=== PATIENT | male | born 1965 | race Hispanic/Latino ===

== ENCOUNTER 2016-08-24 10:02 | Emergency (ER) | payer MEDICAID ==
[2016-08-24 10:02] VITALS: BMI 22.0
[2016-08-24 10:19] VITALS: BP 127/79; PULSE 100; RESP 19; TEMP 98.1; O2SAT 98
--- NOTE | 2016-08-24 10:32 | ED PDOC ---
Arrival/HPI - General Chief Complaint: Lower Extremity Problem/Injury Time Seen by Provider: 08/24/16 10:26 Historian: Patient - History of Present Illness Narrative History of Present Illness (Text): 08/24/16 10:32 50 year old male whose past medical history includes gout on Allopurinol presents to the emergency department with right foot pain. He states the pain is going to the rest of his foot. Denies fever. Denies trauma or injury. No other complaints. PMD: Dr. Hyman Symptom Onset: Gradual Symptom Course: Unchanged Modifying Factors (Text): None Associated Symptoms (Text): None Past Medical History - Provider Review Nursing Documentation Reviewed: Yes - Infectious Disease Hx of Infectious Diseases: None - Tetanus Immunization Tetanus Immunization: Unknown - Cardiac Hx Cardiac Disorders: No - Pulmonary Hx Respiratory Disorders: No - Neurological Hx Neurological Disorder: No - Renal Hx Renal Disorder: No - Endocrine/Metabolic Hx Endocrine Disorders: No - Hematological/Oncological Hx Blood Disorders: Yes Hx Anemia: Yes - Integumentary Hx Dermatological Disorder: No - Musculoskeletal/Rheumatological Hx Musculoskeletal Disorders: Yes Hx Gout: Yes - Gastrointestinal Hx Gastrointestinal Disorders: Yes Hx Gall Bladder Disease: Yes - Genitourinary/Gynecological Hx Genitourinary Disorders: No - Psychiatric Hx Psychophysiologic Disorder: Yes Hx Anxiety: Yes Hx Bipolar Disorder: Yes Hx Depression: No Hx Emotional Abuse: No Hx Physical Abuse: No Hx Substance Use: No - Surgical History Hx Orthopedic Surgery: Yes (rt foot) Other/Comment: deviated septum repair. - Anesthesia Hx Anesthesia: Yes Hx Anesthesia Reactions: No - Suicidal Assessment Feels Threatened In Home Enviroment: No Family/Social History - Physician Review Nursing Documentation Reviewed: Yes Family/Social History: Unknown Family HX Smoking Status: Former Smoker Hx Alcohol Use: No Hx Substance Use: No Hx Substance Use Treatment: Yes Allergies/Home Meds Allergies/Adverse Reactions: Allergies No Known Allergies Allergy (Verified 08/24/16 10:14) Home Medications: Home Meds Medication Instructions Recorded Confirmed Allopurinol [Zyloprim] 1 tab PO DAILY 08/24/16 08/24/16 Review of Systems - Review of Systems Constitutional: absent: Fevers Musculoskeletal: Other (Right foot pain) Physical Exam Vital Signs Reviewed: Yes Vital Signs Temp Pulse Resp BP Pulse Ox 08/24/16 10:18 98.1 F 100 H 19 127/79 98 Temperature: Afebrile Blood Pressure: Normal Pulse: Regular Respiratory Rate: Normal Appearance: Positive for: Well-Appearing, Non-Toxic Pain Distress: Mild Mental Status: Positive for: Alert and Oriented X 3 - Systems Exam Head: Present: Atraumatic, Normocephalic Conjunctiva: Present: Normal Mouth: Present: Moist Mucous Membranes Lower Extremity: Present: NORMAL PULSES, Swelling, Capillary Refill < 2 s, Other (Mild swelling to right ankle and big toe. Mild pinkness to the foot. Not red or warm. ) Neurological: Present: GCS=15, CN II-XII Intact, Speech Normal Psychiatric: Present: Alert, Oriented x 3, Normal Insight, Normal Concentration Medical Decision Making ED Course and Treatment: Impression: 50 year old male whose past medical history includes gout on Allopurinol presents to the emergency department with right foot pain. Differential Diagnosis included but are not limited to: Gout Plan: -- Toradol, Allopurinol -- Reassess and disposition Progress Notes: - Medication Orders Current Medication Orders: Discontinued Medications Ketorolac Tromethamine (Toradol) 60 mg IM STAT STA Stop: 08/24/16 10:32 Last Admin: 08/24/16 11:19 Dose: 60 mg - Scribe Statement The provider has reviewed the documentation as recorded by the Johana Lombardo Provider Scribe Attestation: All medical record entries made by the Johana were at my direction and personally dictated by me. I have reviewed the chart and agree that the record accurately reflects my personal performance of the history, physical exam, medical decision making, and the department course for this patient. I have also personally directed, reviewed, and agree with the discharge instructions and disposition. Disposition/Present on Arrival - Present on Arrival Any Indicators Present on Arrival: No History of DVT/PE: No History of Uncontrolled Diabetes: No Urinary Catheter: No History of Decub. Ulcer: No History Surgical Site Infection Following: None - Disposition Have Diagnosis and Disposition been Completed?: Yes Diagnosis: Gout Disposition: HOME/ ROUTINE Disposition Time: 10:54 Patient Plan: Discharge Condition: GOOD Discharge Instructions (ExitCare): Gout (ED) Additional Instructions: Corrine, thank you for letting us take care of you today. Your provider was Dr. Conroy. You were treated for Gout. The emergency medical care you received today was directed at your acute symptoms. If you were prescribed any medication , please fill it and take as directed. It may take several days for your symptoms to resolve. Return to the Emergency Department if your symptoms worsen , do not improve, or if you have any other problems. Please contact your doctor or call one of the physicians/clinics you have been referred to that are listed on the Patient Visit Information form that is included in your discharge packet. Bring any paperwork you were given at discharge with you along with any medications you are taking to your follow up visit. Our treatment cannot replace ongoing medical care by a primary care provider (PCP) outside of the emergency department. Thank you for allowing the [facility] team to be part of your care today. If you had an X-Ray or CT scan: A Radiologist will review the ED reading if any change in treatment is needed we will contact you. If you had a blood, urine, or wound culture: It will take several days for the results, if any change in treatment is needed we will contact you. If you had an STI test: It will take 48 hours for the results. Please call after 1 week if you have not heard back. Prescriptions: Allopurinol [Zyloprim] 100 mg PO DAILY #30 tab Indomethacin [Indocin suppository] 50 mg [place] TID PRN #30 sup PRN Reason: Pain, Mild (1-3) Referrals: Rory Hyman MD [Primary Care Provider] - Follow up with primary Forms: [employer] (Belarusian), WORK NOTE
== END 2016-08-24 11:27 | disposition home or self-care (01) ==
LOC: ED 10:02
DX: M10.9 Gout, unspecified (principal)
CPT/HCPCS: 96372; 99284; J1885

== ENCOUNTER 2018-07-15 10:29 | Inpatient (IN) | payer MEDICAID ==
[2018-07-15] MEDS ORDERED: Midazolam 2 MG/2 ML VIAL IVP STA ×3 (10:50→11:05)
[2018-07-15] MEDS ORDERED: Sodium Chloride 0.9% 500 ML IV STA (10:56)
--- NOTE | 2018-07-15 11:02 | ED PDOC ---
Arrival/HPI - General Chief Complaint: Psychiatric Evaluation Time Seen by Provider: 07/15/18 10:39 Historian: EMS - History of Present Illness Narrative History of Present Illness (Text): 07/15/18 10:58 A 52 year old male, whose past medical history includes bipolar disorder, is brought into the emergency department via EMS after patient's called EMS for further evaluation after taking vodka and Klonopin. Patient is agitated in the emergency department. Patient HPI/ROS limited due to patient's condition. Time/Duration: Prior to Arrival Symptom Onset: Sudden Symptom Course: Unchanged Activities at Onset: Rest, Light Context: Home Past Medical History - Provider Review Nursing Documentation Reviewed: Yes - Infectious Disease Hx of Infectious Diseases: None - Tetanus Immunization Tetanus Immunization: Unknown - Cardiac Hx Cardiac Disorders: No - Pulmonary Hx Respiratory Disorders: No - Neurological Hx Neurological Disorder: No - Renal Hx Renal Disorder: No - Endocrine/Metabolic Hx Endocrine Disorders: No - Hematological/Oncological Hx Blood Disorders: Yes Hx Anemia: Yes - Integumentary Hx Dermatological Disorder: No - Musculoskeletal/Rheumatological Hx Musculoskeletal Disorders: Yes Hx Gout: Yes - Gastrointestinal Hx Gastrointestinal Disorders: Yes Hx Gall Bladder Disease: Yes - Genitourinary/Gynecological Hx Genitourinary Disorders: No - Psychiatric Hx Psychophysiologic Disorder: Yes Hx Anxiety: Yes Hx Bipolar Disorder: Yes Hx Depression: No Hx Emotional Abuse: No Hx Physical Abuse: No Hx Substance Use: No - Surgical History Hx Orthopedic Surgery: Yes (rt foot) Other/Comment: deviated septum repair. - Anesthesia Hx Anesthesia: Yes Hx Anesthesia Reactions: No Hx Malignant Hyperthermia: No - Suicidal Assessment Feels Threatened In Home Enviroment: No Family/Social History - Physician Review Nursing Documentation Reviewed: Yes Family/Social History: No Known Family HX Smoking Status: Former Smoker Hx Alcohol Use: No Hx Substance Use: No Hx Substance Use Treatment: Yes Allergies/Home Meds Allergies/Adverse Reactions: Allergies No Known Allergies Allergy (Verified 08/24/16 10:14) Home Medications: Home Meds Medication Instructions Recorded Confirmed Allopurinol [Zyloprim] 300 mg PO 07/15/18 Clonazepam [Klonopin] 0.5 mg PO 07/15/18 Divalproex Er 500 mg PO 07/15/18 Levocetirizine Dihydrochloride 5 mg PO 07/15/18 [Xyzal] Olanzapine [Zyprexa] 20 mg PO 07/15/18 Omeprazole 40 mg PO 07/15/18 Quetiapine Fumarate [Quetiapine 150 mg PO 07/15/18 Fumarate ER] Review of Systems - Physician Review All systems were reviewed & negative as marked: Yes - Review of Systems Systems not reviewed;Unavailable: Uncooperative Physical Exam - Physical Exam Physical Exam Limitations: Uncooperative Vital Signs Reviewed: Yes Vital Signs Temp Pulse Resp BP Pulse Ox 07/15/18 10:34 98.9 F 105 H 19 129/79 98 Temperature: Afebrile Blood Pressure: Normal Pulse: Tachycardic Respiratory Rate: Normal Appearance: Positive for: Well-Appearing, Non-Toxic, Comfortable Pain Distress: None Mental Status: Positive for: Alert and Oriented X 3 Medical Decision Making ED Course and Treatment: 07/15/18 11:02 Impression: A 52 year old male is brought into the emergency department for further evaluation after taking Klonopin and vodka. Differential Diagnosis included but are not limited to: Plan: -- EKG -- Chest X-ray -- Labs -- Urinalysis -- Haldol, Versed, IV Fluids -- Reassess and disposition Prior Visits: Notes and results from previous visits were reviewed. Progress Notes: 07/15/18 10:55: Patient combative in the emergency department. Soft restraints ordered and placed for about 10 minutes. Versed and Haldol given. 07/15/18 11:25: EKG read and interpreted by me shows sinus tachycardia at 113 BPM. Normal axis. No ST- T wave changes. 07/15/18 13:05: Dr. Campbell (Records Analyst) in emergency department evaluating patient. Precedex and Lactated Ringers ordered as per Dr. Campbell's requst. 07/15/18 14:35: Dr. Mcconnell (Hospitalist) who accepts patient to his service. - Lab Interpretations I have reviewed the lab results: Yes - EKG Interpretation Interpreted by ED Physician: Yes Type: 12 lead EKG - Medication Orders Current Medication Orders: Discontinued Medications Haloperidol Lactate (Haldol) 5 mg IM STAT STA; Protocol Stop: 07/15/18 10:51 Midazolam HCl (Versed Inj) 2 mg IVP STAT STA Stop: 07/15/18 10:51 - Scribe Statement The provider has reviewed the documentation as recorded by the Scribe Monika Avendanoz Provider Scribe Attestation: All medical record entries made by the Scribe were at my direction and personally dictated by me. I have reviewed the chart and agree that the record accurately reflects my personal performance of the history, physical exam, medical decision making, and the department course for this patient. I have also personally directed, reviewed, and agree with the discharge instructions and disposition. Disposition/Present on Arrival - Present on Arrival Any Indicators Present on Arrival: No History of DVT/PE: No History of Uncontrolled Diabetes: No Urinary Catheter: No History of Decub. Ulcer: No History Surgical Site Infection Following: None - Disposition Have Diagnosis and Disposition been Completed?: Yes Diagnosis: Overdose, Agitation Disposition: HOSPITALIZED Disposition Time: 14:32 Patient Plan: ICU Patient Problems: Current Active Problems Problem Status Onset Agitation Acute Overdose Acute Condition: CRITICAL
[2018-07-15 11:11] LABS: BASO # 0.03 K/mm3 (0.0-2.0); BASO % 0.7 % (0.0-3.0); HEMOGLOBIN 12.6 g/dL (14.0-18.0); LYMPH # 1.2 (1.2-3.4); LYMPH % 27.6 % (22.0-35.0); MEAN CELL VOLUME 100.8 fl (80.0-105.0); MEAN CORPUSCULAR HEMOGLOBIN 33.4 pg (25.0-35.0); MEAN CORPUSCULAR HGB CONC 33.2 g/dl (31.0-37.0); MEAN PLATELET VOLUME 8.6 fl (7.0-11.0); MONO # 0.7 (0.1-0.6); MONO % 16.9 % (1.0-6.0); RBC 3.77 10^6/uL (3.5-6.1); RED CELL DISTRIBUTION WIDTH 14.4 % (11.5-14.5); WHITE BLOOD COUNT 4.4 10^3/uL (4.5-11.0)
[2018-07-15 11:36] LABS: ACETAMINOPHEN < 10.0 ug/ml (10.0-20.0); SALICYLATE < 1 mg/dL (2.0-20.0)
[2018-07-15 11:38] LABS: ALB/GLOB RATIO 1.6 (1.1-1.8); ALBUMIN 4.7 g/dL (3.0-4.8); ALT/SGPT 100 U/L (7-56); AST/SGOT 47 U/L (17-59); BLOOD UREA NITROGEN 6 mg/dL (7-21); CALCIUM 10.1 mg/dL (8.4-10.5); GFR NON-AFRICAN AMERICAN > 60
[2018-07-15] MEDS ORDERED: Sodium Chloride 0.9% 1,000 ML IV STA ×3 (12:07→13:41)
--- NOTE | 2018-07-15 13:23 | CP.PCM.CON ---
History of Present Illness - History of Present Illness History of Present Illness: MICU CONSULT NOTE HPI Patient is 52yo male with PMhx of Bipolar disorder, EtOH abuse, presented from girlfriends home after "accidentally taking Klonopin and alcohol". Unknown amounts of each substance. Pts currently agitated, unable to answer questions, has been given Ativan IV several times. Daughter at beside cannot provide any fu rther history. PMHx etOh abuse, Bipolar disorder PSHx unknown Meds Klonopin, Seroque, Olanzapine Fhx NC Allergies NKDA ROS cannot obtain, agitated Review of Systems - Review of Systems Review of Systems: cannot obtain Past Patient History - Infectious Disease Hx of Infectious Diseases: None - Tetanus Immunizations Tetanus Immunization: Unknown - Past Social History Smoking Status: Former Smoker - CARDIAC Hx Cardiac Disorders: No - PULMONARY Hx Respiratory Disorders: No - NEUROLOGICAL Hx Neurological Disorder: No - RENAL Hx Chronic Kidney Disease: No - ENDOCRINE/METABOLIC Hx Endocrine Disorders: No - HEMATOLOGICAL/ONCOLOGICAL Hx Blood Disorders: Yes Hx Anemia: Yes - INTEGUMENTARY Hx Dermatological Problems: No - MUSCULOSKELETAL/RHEUMATOLOGICAL Hx Musculoskeletal Disorders: Yes Hx Gout: Yes - GASTROINTESTINAL Hx Gastrointestinal Disorders: Yes Hx Gall Bladder Disease: Yes - GENITOURINARY/GYNECOLOGICAL Hx Genitourinary Disorders: No - PSYCHIATRIC Hx Psychophysiologic Disorder: Yes Hx Anxiety: Yes Hx Bipolar Disorder: Yes Hx Depression: No Hx Emotional Abuse: No Hx Physical Abuse: No Hx Substance Use: No - SURGICAL HISTORY Hx Orthopedic Surgery: Yes (rt foot) Other/Comment: deviated septum repair. - ANESTHESIA Hx Anesthesia: Yes Hx Anesthesia Reactions: No Hx Malignant Hyperthermia: No Meds Allergies/Adverse Reactions: Allergies Allergy/AdvReac Type Severity Reaction Status Date / Time No Known Allergies Allergy Verified 08/24/16 10:14 - Medications Medications: Current Medications Dexmedetomidine HCl (Precedex 400mcg/100ml) 400 mcg in 100 mls @ 8.845 mls/hr IV .[id number] PRN; Protocol PRN Reason: Agitation Lactated Ringer's 1,000 ml/ IV (SUPPLIES) 1,000 mls @ 4,245.6 mls/hr IV ONCE ONE Stop: 07/15/18 13:21 Physical Exam - Constitutional Appears: Toxic, Older Than Stated Age, Combative, Agitated, Confused - Head Exam Head Exam: ATRAUMATIC - Eye Exam Eye Exam: Normal appearance - ENT Exam ENT Exam: Mucous Membranes Dry - Respiratory Exam Respiratory Exam: Clear to Auscultation Bilateral, NORMAL BREATHING PATTERN - Cardiovascular Exam Cardiovascular Exam: REGULAR RHYTHM, +S1, +S2 - GI/Abdominal Exam GI & Abdominal Exam: Normal Bowel Sounds, Soft - Neurological Exam Neurological exam: Altered - Psychiatric Exam Psychiatric exam: Agitated, Anxious - Skin Skin Exam: Normal Color, Warm Results - Vital Signs Recent Vital Signs: Last Vital Signs Temp 98.9 F 07/15/18 10:34 Pulse 135 H 07/15/18 10:39 Resp 22 07/15/18 10:39 BP 129/79 07/15/18 10:34 Pulse Ox 99 07/15/18 10:39 - Labs Result Diagrams: 07/15/18 10:54 07/15/18 10:54 Labs: Laboratory Results - last 24 hr 07/15/18 07/15/18 07/15/18 10:54 10:54 10:54 WBC 4.4 L RBC 3.77 Hgb 12.6 L Hct 38.0 L MCV 100.8 MCH 33.4 MCHC 33.2 RDW 14.4 Plt Count 245 MPV 8.6 Neut % (Auto) 54.8 Lymph % (Auto) 27.6 Sargent % (Auto) 16.9 H Eos % (Auto) 0.0 L Baso % (Auto) 0.7 Lymph # (Auto) 1.2 Sargent # (Auto) 0.7 H Eos # (Auto) 0.0 Baso # (Auto) 0.03 Absolute Neuts (auto) 2.41 Sodium Potassium Chloride Carbon Dioxide Anion Gap BUN Creatinine Est GFR ( Amer) Est GFR (Non-Af Amer) Random Glucose Calcium Magnesium Total Bilirubin AST ALT Alkaline Phosphatase Total Protein Albumin Globulin Albumin/Globulin Ratio Salicylates < 1 L Acetaminophen < 10.0 L Alcohol, Quantitative 60 H 07/15/18 10:54 WBC RBC Hgb Hct MCV MCH MCHC RDW Plt Count MPV Neut % (Auto) Lymph % (Auto) Sargent % (Auto) Eos % (Auto) Baso % (Auto) Lymph # (Auto) Sargent # (Auto) Eos # (Auto) Baso # (Auto) Absolute Neuts (auto) Sodium 147 Potassium 4.3 Chloride 111 H Carbon Dioxide 14 L Anion Gap 26 H BUN 6 L Creatinine 1.0 Est GFR ( Amer) > 60 Est GFR (Non-Af Amer) > 60 Random Glucose 129 H Calcium 10.1 Magnesium 2.0 Total Bilirubin 0.7 AST 47 ALT 100 H Alkaline Phosphatase 81 Total Protein 7.7 Albumin 4.7 Globulin 3.0 Albumin/Globulin Ratio 1.6 Salicylates Acetaminophen Alcohol, Quantitative Assessment & Plan - Assessment and Plan (Free Text) Assessment: 52yo male a/w alcohol withdrawal, ingestion of unknown substance Delirium Tremens AMS Overdose BZD abuse Bipolar disorder Non GAP acidosis - currently afebrile, HD stable, agitated, combative, not following commands, screaming - labs, imaging, chart reviewed - thus far has received 1L NS, BZD Recommend: - supp o2 as needed, duonebs PRN - NPO - panculture, UCx, BCx, procal - IVF, NS with thiamine, folic, MVT - CT head without contrast - place Francis, I/Os, UA, Ulytes, Obtain Utox - start Precedex drip - contact poison contract - VBG with lactate - check serum OSM - GI ppx - DVT ppx - Monitor in MICU Critical care time 30 minutes
[2018-07-15] MEDS ORDERED: Albuterol-Ipratrop 3 mg / 0.5 (3 ml) UD IH PRN (13:30)
[2018-07-15] MEDS: Dexmedetomidine 400mcg/100mL 400 MCG/100 ML BOTTLE IV PRN ×2 (13:33→20:56)
[2018-07-15 14:34] LABS: VENOUS BLOOD GAS BASE EXCESS -3.9 mmol/L (0.0-2.0); VENOUS BLOOD GAS PO2 104 mm/Hg (30-55); VENOUS BLOOD PH 7.49 (7.32-7.43)
--- NOTE | 2018-07-15 14:51 | CP.PCM.HP ---
<Vineet Craig - Last Filed: 07/15/18 18:35> History of Present Illness - History of Present Illness History of Present Illness: Hospitalist Service H&P Vineet Craig DO, IM PGY-3 CC: Klonopin OD with alcohol This is a 52 yo M with PMH of Bipolar disorder, gout, and hx of alcohol abuse who was brought in by ambulance after overdosing on Klonopin while drinking excessively (vodka). HPI/ROS/PE limited due to patient unresponsiveness (sedated on precedex at time of exam); patient required sedation due to agitation on presentation, ROS unobtainable then as well, so information limited to prior charting, and minimal collateral info provided by family at bedside. As per ED, patient agitated on arrival, possibly suffering from DTs, but remained agitated and uncooperative despite several doses of Ativan, necessitating the precedex. At time of my exam, patient is minimally arousable to verbal/physical stimuli and immediately returns to somnolence. No appreciable tremors at time of exam. Is pending admission to ICU on precedex drip for alcohol/benzo withdrawal and close monitoring. PMH: as above PSH: orthopedic procedure R foot, deviated septum repair Fam Hx: unobtainable in current state Soc Hx: former smoker as per charting, active alcohol user (quantity unknown), no known illicit use PMD: Dr. Hyman Present on Admission - Present on Admission Any Indicators Present on Admission: No History of DVT/PE: No History of Uncontrolled Diabetes: No Review of Systems - Review of Systems Systems not reviewed;Unavailable: Altered Mental Status (initially agitated, now sedated) Past Patient History - Infectious Disease Hx of Infectious Diseases: None - Tetanus Immunizations Tetanus Immunization: Unknown - Past Social History Smoking Status: Former Smoker - CARDIAC Hx Cardiac Disorders: No - PULMONARY Hx Respiratory Disorders: No - NEUROLOGICAL Hx Neurological Disorder: No - RENAL Hx Chronic Kidney Disease: No - ENDOCRINE/METABOLIC Hx Endocrine Disorders: No - HEMATOLOGICAL/ONCOLOGICAL Hx Blood Disorders: Yes Hx Anemia: Yes - INTEGUMENTARY Hx Dermatological Problems: No - MUSCULOSKELETAL/RHEUMATOLOGICAL Hx Musculoskeletal Disorders: Yes Hx Gout: Yes - GASTROINTESTINAL Hx Gastrointestinal Disorders: Yes Hx Gall Bladder Disease: Yes - GENITOURINARY/GYNECOLOGICAL Hx Genitourinary Disorders: No - PSYCHIATRIC Hx Psychophysiologic Disorder: Yes Hx Anxiety: Yes Hx Bipolar Disorder: Yes Hx Depression: No Hx Emotional Abuse: No Hx Physical Abuse: No Hx Substance Use: No - SURGICAL HISTORY Hx Orthopedic Surgery: Yes (rt foot) Other/Comment: deviated septum repair. - ANESTHESIA Hx Anesthesia: Yes Hx Anesthesia Reactions: No Hx Malignant Hyperthermia: No Meds Allergies/Adverse Reactions: Allergies Allergy/AdvReac Type Severity Reaction Status Date / Time No Known Allergies Allergy Verified 08/24/16 10:14 Physical Exam - Constitutional Appears: Non-toxic, Chronically Ill, Other (sedated due to agitation/possible DTs) Additional comments: exam limited as sedated, not responsive, so not following commands - Head Exam Head Exam: ATRAUMATIC, NORMAL INSPECTION, NORMOCEPHALIC - Eye Exam Additional comments: keeping eyes closed, flutters open for few seconds with stimulation then closes again, resists passive eye opening, no mary beth icterus appreciated, unable to assess EOM - ENT Exam ENT Exam: Mucous Membranes Moist - Neck Exam Neck exam: Negative for: Lymphadenopathy, Thyromegaly - Respiratory Exam Respiratory Exam: Clear to Auscultation Bilateral, NORMAL BREATHING PATTERN. absent: Rales, Rhonchi, Wheezes Additional comments: sedated, not following commands, not taking deep breaths for auscultory exam - Cardiovascular Exam Cardiovascular Exam: REGULAR RHYTHM, +S1, +S2. absent: Bradycardia, Irregular Rhythm, JVD, +S4 Additional comments: Initially tachy on arrival but now 90's consistently on bedside monitor, rhythm regular throughout - GI/Abdominal Exam GI & Abdominal Exam: Normal Bowel Sounds, Soft. absent: Diminished Bowel Sounds, Distended, Firm, Hyperactive Bowel Sounds, Hypoactive Bowel Sounds, Rigid, Tenderness - Extremities Exam Extremities exam: Positive for: normal capillary refill, normal inspection, pedal pulses present. Negative for: joint swelling, pedal edema - Neurological Exam Additional comments: sedated on precedex, minimally responsive to physical/verbal stimuli but immediately returns to somnolence, not following any commands, minimal spontaneous movements appreciated (none appear purposeful). - Psychiatric Exam Additional comments: sedated, unable to assess - Skin Skin Exam: Dry, Intact, Normal Color, Warm Results - Vital Signs Recent Vital Signs: Last Vital Signs Temp 98.9 F 07/15/18 10:34 Pulse 147 H 07/15/18 14:23 Resp 22 07/15/18 14:23 BP 141/81 07/15/18 14:23 Pulse Ox 100 07/15/18 14:23 - Labs Result Diagrams: 07/15/18 10:54 07/15/18 10:54 Labs: Laboratory Results - last 24 hr 07/15/18 07/15/18 07/15/18 10:54 10:54 10:54 WBC 4.4 L RBC 3.77 Hgb 12.6 L Hct 38.0 L MCV 100.8 MCH 33.4 MCHC 33.2 RDW 14.4 Plt Count 245 MPV 8.6 Neut % (Auto) 54.8 Lymph % (Auto) 27.6 [place] % (Auto) 16.9 H Eos % (Auto) 0.0 L Baso % (Auto) 0.7 Lymph # (Auto) 1.2 [place] # (Auto) 0.7 H Eos # (Auto) 0.0 Baso # (Auto) 0.03 Absolute Neuts (auto) 2.41 pO2 VBG pH VBG pCO2 VBG HCO3 VBG Total CO2 VBG O2 Sat (Calc) VBG Base Excess VBG Potassium Glucose Lactate FiO2 Crit Value Called To Crit Value Called By Blood Gas Notified Time Sodium Potassium Chloride Carbon Dioxide Anion Gap BUN Creatinine Est GFR ( Amer) Est GFR (Non-Af Amer) Random Glucose Serum Osmolality Calcium Magnesium Total Bilirubin AST ALT Alkaline Phosphatase Total Protein Albumin Globulin Albumin/Globulin Ratio Venous Blood Potassium Salicylates < 1 L Acetaminophen < 10.0 L Alcohol, Quantitative 60 H 07/15/18 07/15/18 07/15/18 10:54 12:00 14:20 WBC RBC Hgb Hct MCV MCH MCHC RDW Plt Count MPV Neut % (Auto) Lymph % (Auto) [place] % (Auto) Eos % (Auto) Baso % (Auto) Lymph # (Auto) [place] # (Auto) Eos # (Auto) Baso # (Auto) Absolute Neuts (auto) pO2 104 H VBG pH 7.49 H VBG pCO2 23.0 L VBG HCO3 17.5 L VBG Total CO2 18.2 L VBG O2 Sat (Calc) 98.5 H VBG Base Excess -3.9 L VBG Potassium 3.7 Glucose 101 Lactate 5.8 H* FiO2 21.0 Crit Value Called To Joelle clark Crit Value Called By Rst Blood Gas Notified Time 1430 Sodium 147 144.0 Potassium 4.3 Chloride 111 H 116.0 H Carbon Dioxide 14 L Anion Gap 26 H BUN 6 L Creatinine 1.0 Est GFR ( Amer) > 60 Est GFR (Non-Af Amer) > 60 Random Glucose 129 H Serum Osmolality 313 H Calcium 10.1 Magnesium 2.0 Total Bilirubin 0.7 AST 47 ALT 100 H Alkaline Phosphatase 81 Total Protein 7.7 Albumin 4.7 Globulin 3.0 Albumin/Globulin Ratio 1.6 Venous Blood Potassium 3.7 Salicylates Acetaminophen Alcohol, Quantitative Assessment & Plan - Assessment and Plan (Free Text) Assessment: This is a 52 yo M with PMH of Bipolar disorder, gout, and hx of alcohol abuse who was brought in by ambulance after overdosing on Klonopin while drinking excessively (vodka). He is being admitted for alcohol/benzo withdrawal, possible DTs. Due to requiring sedation with precedex, patient was admitted to the MICU. Plan: 1) Agitation/AMS - likely 2/2 Klonopin + Alcohol OD 2) Klonopin + Alcohol OD - pending withdrawal 3) Possible DTs 4) Bipolar 5) Potential urinary obstruction/rentention 6) Metabolic anion-gap acidosis -Sedated on precedex drip due to no improvement after multiple ativan doses -Urine drug screen ordered, but ED staff unable to access bladder with sanchez, urology consulted for access Once sanchez placed, strict I's and O's, UDS, urine lytes, -IVF, multivitamin, folic acid, thiamine for alcohol abuse -VBG lactate 5.8; metabolic gapped acidosis likely combination of alcohol +/- lactic acidosis -Urine and blood cultures pending, procal pending -alcohol level 60, salicylates and tylenol levels negative -elevated ALT to 100, nml AST and Alk phos, not consistent with alcohol tox -wean from sedation as tolerated, defer to ICU for this decision -Poison control consulted, appreciate their recs Patient seen, reviewed, and discussed with attending, Dr. Mcconnell <Mali Mcconnell - Last Filed: 07/16/18 15:37> Results - Vital Signs Recent Vital Signs: Last Vital Signs Temp 98.6 F 07/16/18 12:00 Pulse 77 07/16/18 12:00 Resp 13 07/16/18 10:00 BP 138/81 07/16/18 10:00 Pulse Ox 95 07/16/18 10:00 - Labs Result Diagrams: 07/16/18 05:00 07/16/18 05:00 Labs: Laboratory Results - last 24 hr 07/15/18 07/15/18 07/16/18 12:00 19:58 05:00 WBC 5.5 D RBC 3.98 Hgb 13.2 L Hct 40.7 L MCV 102.3 MCH 33.2 MCHC 32.4 RDW 14.3 Plt Count 229 MPV 8.8 Neut % (Auto) 66.0 Lymph % (Auto) 20.6 L [place] % (Auto) 13.0 H Eos % (Auto) 0.0 L Baso % (Auto) 0.4 Lymph # (Auto) 1.1 L [place] # (Auto) 0.7 H Eos # (Auto) 0.0 Baso # (Auto) 0.02 Absolute Neuts (auto) 3.65 pO2 193 H VBG pH 7.45 H VBG pCO2 28.0 L VBG HCO3 19.5 L VBG Total CO2 20.4 L VBG O2 Sat (Calc) 99.3 H VBG Base Excess -3.2 L VBG Potassium 3.5 L Sodium 144.0 Chloride 116.0 H Glucose 116 H Lactate 1.9 FiO2 21.0 Crit Value Called To Brenda salinas Crit Value Called By Dariel Blood Gas Notified Time 2025 Potassium Carbon Dioxide Anion Gap BUN Creatinine Est GFR ( Amer) Est GFR (Non-Af Amer) Random Glucose Calcium Phosphorus Magnesium Total Bilirubin AST ALT Alkaline Phosphatase Total Protein Albumin Globulin Albumin/Globulin Ratio Procalcitonin < 0.05 L Venous Blood Potassium 3.5 L Urine Opiates Screen Urine Methadone Screen Ur Barbiturates Screen Ur Phencyclidine Scrn Ur Amphetamines Screen U Benzodiazepines Scrn U Oth Cocaine Metabols U Cannabinoids Screen 07/16/18 07/16/18 05:00 08:40 WBC RBC Hgb Hct MCV MCH MCHC RDW Plt Count MPV Neut % (Auto) Lymph % (Auto) [place] % (Auto) Eos % (Auto) Baso % (Auto) Lymph # (Auto) [place] # (Auto) Eos # (Auto) Baso # (Auto) Absolute Neuts (auto) pO2 VBG pH VBG pCO2 VBG HCO3 VBG Total CO2 VBG O2 Sat (Calc) VBG Base Excess VBG Potassium Sodium 148 Chloride 116 H Glucose Lactate FiO2 Crit Value Called To Crit Value Called By Blood Gas Notified Time Potassium 4.0 Carbon Dioxide 22 Anion Gap 14 BUN 9 Creatinine 0.9 Est GFR ( Amer) > 60 Est GFR (Non-Af Amer) > 60 Random Glucose 98 Calcium 10.2 Phosphorus 4.3 Magnesium 2.3 H Total Bilirubin 1.2 AST 52 ALT 81 H Alkaline Phosphatase 88 Total Protein 7.3 Albumin 4.3 Globulin 3.0 Albumin/Globulin Ratio 1.5 Procalcitonin Venous Blood Potassium Urine Opiates Screen Negative Urine Methadone Screen Negative Ur Barbiturates Screen Negative Ur Phencyclidine Scrn Negative Ur Amphetamines Screen Negative U Benzodiazepines Scrn Positive H U Oth Cocaine Metabols Negative U Cannabinoids Screen Negative Attending/Attestation - Attestation I have personally seen and examined this patient.: Yes I have fully participated in the care of the patient.: Yes I have reviewed all pertinent clinical information: Yes Notes (Text): 07/16/18 15:33 Patient was seen and examined with phlebotomist medical lab assistant. . 52 yo M with PMH of Bipolar disorder, gout, and hx of alcohol abuse who was brought in by ambulance after overdosing on Klonopin while drinking excessive vodka.Patient was agitated in ER and was started on Precedex drip.There is no focal deficit.Patient is still confused , able to answer yes or no to questions only.Sister is at bed side.At this we will continue Precedex drip, once agitation will be controlled, will get CT head. We will monitor Neuro check. There is no sign of infection at this time. Patient is going to be admitted to ICU. Management plan was discussed in detail with patient sister who is at bed side. Education was provided.
[2018-07-15] MEDS ORDERED: Multivitamin (MVI) 10 ML, Thiamine 100 MG, Folic Acid 1 MG in Sodium Chloride 0.9% 1,00... IV ONE (15:00)
--- NOTE | 2018-07-15 16:06 | RAD ---
Date of service: 07/15/2018 HISTORY: r/o infiltrate COMPARISON: 11/24/2012 TECHNIQUE: 1 view obtained. FINDINGS: LUNGS: No active pulmonary disease. PLEURA: No significant pleural effusion identified, no pneumothorax apparent. CARDIOVASCULAR: No aortic atherosclerotic calcification present. Mild cardiomegaly no pulmonary vascular congestion. OSSEOUS STRUCTURES: No significant abnormalities. VISUALIZED UPPER ABDOMEN: Normal. OTHER FINDINGS: None. IMPRESSION: No active disease.
--- NOTE | 2018-07-15 19:45 | CARD ---
APPROVED REPORT Date of service: 07/15/2018 EKG Measurement Heart [id number] <Conclusion> Sinus tachycardia Otherwise normal ECG
[2018-07-15 20:27] LABS: VENOUS BLOOD GAS BASE EXCESS -3.2 mmol/L (0.0-2.0); VENOUS BLOOD GAS PO2 193 mm/Hg (30-55); VENOUS BLOOD PH 7.45 (7.32-7.43)
[2018-07-15 22:28] VITALS: BMI 25.2
[2018-07-15] MEDS ORDERED: Pneumococcal 23-Valent Vaccine IM ONE (22:29)
[2018-07-16 05:49] LABS: BASO # 0.02 K/mm3 (0.0-2.0); BASO % 0.4 % (0.0-3.0); HEMOGLOBIN 13.2 g/dL (14.0-18.0); LYMPH # 1.1 (1.2-3.4); LYMPH % 20.6 % (22.0-35.0); MEAN CELL VOLUME 102.3 fl (80.0-105.0); MEAN CORPUSCULAR HEMOGLOBIN 33.2 pg (25.0-35.0); MEAN CORPUSCULAR HGB CONC 32.4 g/dl (31.0-37.0); MEAN PLATELET VOLUME 8.8 fl (7.0-11.0); MONO # 0.7 (0.1-0.6); RBC 3.98 10^6/uL (3.5-6.1); RED CELL DISTRIBUTION WIDTH 14.3 % (11.5-14.5); WHITE BLOOD COUNT 5.5 10^3/uL (4.5-11.0)
[2018-07-16 06:11] LABS: ALB/GLOB RATIO 1.5 (1.1-1.8); ALBUMIN 4.3 g/dL (3.0-4.8); ALT/SGPT 81 U/L (7-56); AST/SGOT 52 U/L (17-59); BLOOD UREA NITROGEN 9 mg/dL (7-21); CALCIUM 10.2 mg/dL (8.4-10.5); GFR NON-AFRICAN AMERICAN > 60
--- NOTE | 2018-07-16 07:29 | CP.CCUPN ---
<Phil Tirado - Last Filed: 07/16/18 11:18> CCU Subjective - Physician Review Subjective (Free Text): Phil Tirado PGY-1 Critical Care Progress Note Patient seen and evaluated at bedside. No acute events reported overnight. Patient agitation decreased over course of night. Patient became emotional overnight, relaying social issues at home. Denies current chest pain, palpitations, shortness of breath, abdominal pain, leg pain or headaches. CCU Objective - Vital Signs / Intake & Output Vital Signs (Last 4 hours): Vital Signs Pulse 07/16/18 04:00 54 L Intake and Output (Last 8hrs): Intake & Output 07/15/18 07/16/18 07/16/18 22:59 06:59 14:59 Intake Total 90 Output Total 0 Balance 90 Weight 70.76 kg 72.575 kg Intake: IV 90 Output: Urine 0 - Physical Exam Other physical findings (Free Text): - Constitutional Appears: Non-toxic, Unkempt Additional comments: - Head Exam Head Exam: ATRAUMATIC, NORMAL INSPECTION, NORMOCEPHALIC - Eye Exam Additional comments: EOMI no scleral icterus appreciated - ENT Exam ENT Exam: Mucous Membranes Moist - Neck Exam Neck exam: Negative for: Lymphadenopathy, Thyromegaly - Respiratory Exam Respiratory Exam: Clear to Auscultation Bilateral, NORMAL BREATHING PATTERN. absent: Rales, Rhonchi, Wheezes - Cardiovascular Exam Cardiovascular Exam: REGULAR RHYTHM, +S1, +S2. absent: Bradycardia, Irregular Rhythm, JVD, +S4 - GI/Abdominal Exam GI & Abdominal Exam: Hyperactive Bowel Sounds, Soft. absent: Diminished Bowel Sounds, Distended, Firm, Hypoactive Bowel Sounds, Rigid, Tenderness - Extremities Exam Extremities exam: Positive for: normal capillary refill, normal inspection, pedal pulses present. Negative for: joint swelling, pedal edema - Neurological Exam Additional comments: AAOx3 - Skin Skin Exam: Dry, Intact, Normal Color, Warm - Medications Active Medications: Active Medications Generic Name Dose Route Start Last Admin Trade Name Freq PRN Reason Stop Dose Admin Albuterol/Ipratropium 3 ml 07/15/18 13:30 Duoneb 3 Mg/0.5 Mg (3 Ml) Ud IH [id number] PRN Shortness of Breath Dexmedetomidine HCl 400 mcg in 100 mls @ 8.845 mls/hr 07/15/18 13:04 07/15/18 20:56 Precedex 400mcg/100ml IV 0.9 mcg/kg/hr [id number] PRN 15.921 mls/hr Agitation Administration Protocol 0.5 MCG/KG/HR - Patient Studies Lab Studies: Lab Studies 07/16/18 07/16/18 07/15/18 Range/Units 05:00 05:00 19:58 WBC 5.5 D (4.5-11.0) 10^3/uL RBC 3.98 (3.5-6.1) 10^6/uL Hgb 13.2 L (14.0-18.0) g/dL Hct 40.7 L (42.0-52.0) % MCV 102.3 (80.0-105.0) fl MCH 33.2 (25.0-35.0) pg MCHC 32.4 (31.0-37.0) g/dl RDW 14.3 (11.5-14.5) % Plt Count 229 (120.0-450.0) 10^3/uL MPV 8.8 (7.0-11.0) fl Neut % (Auto) 66.0 (50.0-68.0) % Lymph % (Auto) 20.6 L (22.0-35.0) % [place] % (Auto) 13.0 H (1.0-6.0) % Eos % (Auto) 0.0 L (1.5-5.0) % Baso % (Auto) 0.4 (0.0-3.0) % Lymph # (Auto) 1.1 L (1.2-3.4) [place] # (Auto) 0.7 H (0.1-0.6) Eos # (Auto) 0.0 (0.0-0.7) Baso # (Auto) 0.02 (0.0-2.0) K/mm3 Absolute Neuts (auto) 3.65 (1.4-6.5) pO2 193 H (30-55) mm/Hg VBG pH 7.45 H (7.32-7.43) VBG pCO2 28.0 L (40-60) VBG HCO3 19.5 L (21-28) mmol/l VBG Total CO2 20.4 L (22-28) mmol.L VBG O2 Sat (Calc) 99.3 H (40-65) % VBG Base Excess -3.2 L (0.0-2.0) mmol/L VBG Potassium 3.5 L (3.6-5.2) mmol/L Glucose 116 H (75-110) mg/dl Lactate 1.9 (0.7-2.1) mmol/L FiO2 21.0 % Crit Value Called To Brenda salinas Crit Value Called By Dariel Blood Gas Notified Time 2025 Sodium 148 144.0 (132-148) mmol/L Potassium 4.0 (3.6-5.0) mmol/L Chloride 116 H 116.0 H (98-107) mmol/L Carbon Dioxide 22 (21-33) mmol/L Anion Gap 14 (10-20) BUN 9 (7-21) mg/dL Creatinine 0.9 (0.8-1.5) mg/dl Est GFR ( Amer) > 60 Est GFR (Non-Af Amer) > 60 Random Glucose 98 (70-110) mg/dL Serum Osmolality (272-300) mosm/kg Calcium 10.2 (8.4-10.5) mg/dL Phosphorus 4.3 (2.5-4.5) mg/dL Magnesium 2.3 H (1.7-2.2) mg/dL Total Bilirubin 1.2 (0.2-1.3) mg/dL AST 52 (17-59) U/L ALT 81 H (7-56) U/L Alkaline Phosphatase 88 (38-126) U/L Total Protein 7.3 (5.8-8.3) g/dL Albumin 4.3 (3.0-4.8) g/dL Globulin 3.0 gm/dL Albumin/Globulin Ratio 1.5 (1.1-1.8) Procalcitonin (0.19-0.49) NG/ML Venous Blood Potassium 3.5 L (3.6-5.2) mmol/L Salicylates (2.0-20.0) mg/dL Acetaminophen (10.0-20.0) ug/ml Alcohol, Quantitative (0-10) mg/dL 07/15/18 07/15/18 07/15/18 Range/Units 14:20 12:00 12:00 WBC (4.5-11.0) 10^3/uL RBC (3.5-6.1) 10^6/uL Hgb (14.0-18.0) g/dL Hct (42.0-52.0) % MCV (80.0-105.0) fl MCH (25.0-35.0) pg MCHC (31.0-37.0) g/dl RDW (11.5-14.5) % Plt Count (120.0-450.0) 10^3/uL MPV (7.0-11.0) fl Neut % (Auto) (50.0-68.0) % Lymph % (Auto) (22.0-35.0) % [place] % (Auto) (1.0-6.0) % Eos % (Auto) (1.5-5.0) % Baso % (Auto) (0.0-3.0) % Lymph # (Auto) (1.2-3.4) [place] # (Auto) (0.1-0.6) Eos # (Auto) (0.0-0.7) Baso # (Auto) (0.0-2.0) K/mm3 Absolute Neuts (auto) (1.4-6.5) pO2 104 H (30-55) mm/Hg VBG pH 7.49 H (7.32-7.43) VBG pCO2 23.0 L (40-60) VBG HCO3 17.5 L (21-28) mmol/l VBG Total CO2 18.2 L (22-28) mmol.L VBG O2 Sat (Calc) 98.5 H (40-65) % VBG Base Excess -3.9 L (0.0-2.0) mmol/L VBG Potassium 3.7 (3.6-5.2) mmol/L Glucose 101 (75-110) mg/dl Lactate 5.8 H* (0.7-2.1) mmol/L FiO2 21.0 % Crit Value Called To Joelle clark Crit Value Called By Rst Blood Gas Notified Time 1430 Sodium 144.0 (132-148) mmol/L Potassium (3.6-5.0) mmol/L Chloride 116.0 H (98-107) mmol/L Carbon Dioxide (21-33) mmol/L Anion Gap (10-20) BUN (7-21) mg/dL Creatinine (0.8-1.5) mg/dl Est GFR ( Amer) Est GFR (Non-Af Amer) Random Glucose (70-110) mg/dL Serum Osmolality 313 H (272-300) mosm/kg Calcium (8.4-10.5) mg/dL Phosphorus (2.5-4.5) mg/dL Magnesium (1.7-2.2) mg/dL Total Bilirubin (0.2-1.3) mg/dL AST (17-59) U/L ALT (7-56) U/L Alkaline Phosphatase (38-126) U/L Total Protein (5.8-8.3) g/dL Albumin (3.0-4.8) g/dL Globulin gm/dL Albumin/Globulin Ratio (1.1-1.8) Procalcitonin < 0.05 L (0.19-0.49) NG/ML Venous Blood Potassium 3.7 (3.6-5.2) mmol/L Salicylates (2.0-20.0) mg/dL Acetaminophen (10.0-20.0) ug/ml Alcohol, Quantitative (0-10) mg/dL 07/15/18 07/15/18 07/15/18 Range/Units 10:54 10:54 10:54 WBC 4.4 L (4.5-11.0) 10^3/uL RBC 3.77 (3.5-6.1) 10^6/uL Hgb 12.6 L (14.0-18.0) g/dL Hct 38.0 L (42.0-52.0) % MCV 100.8 (80.0-105.0) fl MCH 33.4 (25.0-35.0) pg MCHC 33.2 (31.0-37.0) g/dl RDW 14.4 (11.5-14.5) % Plt Count 245 (120.0-450.0) 10^3/uL MPV 8.6 (7.0-11.0) fl Neut % (Auto) 54.8 (50.0-68.0) % Lymph % (Auto) 27.6 (22.0-35.0) % [place] % (Auto) 16.9 H (1.0-6.0) % Eos % (Auto) 0.0 L (1.5-5.0) % Baso % (Auto) 0.7 (0.0-3.0) % Lymph # (Auto) 1.2 (1.2-3.4) [place] # (Auto) 0.7 H (0.1-0.6) Eos # (Auto) 0.0 (0.0-0.7) Baso # (Auto) 0.03 (0.0-2.0) K/mm3 Absolute Neuts (auto) 2.41 (1.4-6.5) pO2 (30-55) mm/Hg VBG pH (7.32-7.43) VBG pCO2 (40-60) VBG HCO3 (21-28) mmol/l VBG Total CO2 (22-28) mmol.L VBG O2 Sat (Calc) (40-65) % VBG Base Excess (0.0-2.0) mmol/L VBG Potassium (3.6-5.2) mmol/L Glucose (75-110) mg/dl Lactate (0.7-2.1) mmol/L FiO2 % Crit Value Called To Crit Value Called By Blood Gas Notified Time Sodium 147 (132-148) mmol/L Potassium 4.3 (3.6-5.0) mmol/L Chloride 111 H (98-107) mmol/L Carbon Dioxide 14 L (21-33) mmol/L Anion Gap 26 H (10-20) BUN 6 L (7-21) mg/dL Creatinine 1.0 (0.8-1.5) mg/dl Est GFR ( Amer) > 60 Est GFR (Non-Af Amer) > 60 Random Glucose 129 H (70-110) mg/dL Serum Osmolality (272-300) mosm/kg Calcium 10.1 (8.4-10.5) mg/dL Phosphorus (2.5-4.5) mg/dL Magnesium 2.0 (1.7-2.2) mg/dL Total Bilirubin 0.7 (0.2-1.3) mg/dL AST 47 (17-59) U/L ALT 100 H (7-56) U/L Alkaline Phosphatase 81 (38-126) U/L Total Protein 7.7 (5.8-8.3) g/dL Albumin 4.7 (3.0-4.8) g/dL Globulin 3.0 gm/dL Albumin/Globulin Ratio 1.6 (1.1-1.8) Procalcitonin (0.19-0.49) NG/ML Venous Blood Potassium (3.6-5.2) mmol/L Salicylates (2.0-20.0) mg/dL Acetaminophen (10.0-20.0) ug/ml Alcohol, Quantitative 60 H (0-10) mg/dL 07/15/18 Range/Units 10:54 WBC (4.5-11.0) 10^3/uL RBC (3.5-6.1) 10^6/uL Hgb (14.0-18.0) g/dL Hct (42.0-52.0) % MCV (80.0-105.0) fl MCH (25.0-35.0) pg MCHC (31.0-37.0) g/dl RDW (11.5-14.5) % Plt Count (120.0-450.0) 10^3/uL MPV (7.0-11.0) fl Neut % (Auto) (50.0-68.0) % Lymph % (Auto) (22.0-35.0) % [place] % (Auto) (1.0-6.0) % Eos % (Auto) (1.5-5.0) % Baso % (Auto) (0.0-3.0) % Lymph # (Auto) (1.2-3.4) [place] # (Auto) (0.1-0.6) Eos # (Auto) (0.0-0.7) Baso # (Auto) (0.0-2.0) K/mm3 Absolute Neuts (auto) (1.4-6.5) pO2 (30-55) mm/Hg VBG pH (7.32-7.43) VBG pCO2 (40-60) VBG HCO3 (21-28) mmol/l VBG Total CO2 (22-28) mmol.L VBG O2 Sat (Calc) (40-65) % VBG Base Excess (0.0-2.0) mmol/L VBG Potassium (3.6-5.2) mmol/L Glucose (75-110) mg/dl Lactate (0.7-2.1) mmol/L FiO2 % Crit Value Called To Crit Value Called By Blood Gas Notified Time Sodium (132-148) mmol/L Potassium (3.6-5.0) mmol/L Chloride (98-107) mmol/L Carbon Dioxide (21-33) mmol/L Anion Gap (10-20) BUN (7-21) mg/dL Creatinine (0.8-1.5) mg/dl Est GFR ( Amer) Est GFR (Non-Af Amer) Random Glucose (70-110) mg/dL Serum Osmolality (272-300) mosm/kg Calcium (8.4-10.5) mg/dL Phosphorus (2.5-4.5) mg/dL Magnesium (1.7-2.2) mg/dL Total Bilirubin (0.2-1.3) mg/dL AST (17-59) U/L ALT (7-56) U/L Alkaline Phosphatase (38-126) U/L Total Protein (5.8-8.3) g/dL Albumin (3.0-4.8) g/dL Globulin gm/dL Albumin/Globulin Ratio (1.1-1.8) Procalcitonin (0.19-0.49) NG/ML Venous Blood Potassium (3.6-5.2) mmol/L Salicylates < 1 L (2.0-20.0) mg/dL Acetaminophen < 10.0 L (10.0-20.0) ug/ml Alcohol, Quantitative (0-10) mg/dL Laboratory Results - last 24 hr 07/15/18 07/15/18 07/15/18 10:54 10:54 10:54 WBC 4.4 L RBC 3.77 Hgb 12.6 L Hct 38.0 L MCV 100.8 MCH 33.4 MCHC 33.2 RDW 14.4 Plt Count 245 MPV 8.6 Neut % (Auto) 54.8 Lymph % (Auto) 27.6 [place] % (Auto) 16.9 H Eos % (Auto) 0.0 L Baso % (Auto) 0.7 Lymph # (Auto) 1.2 [place] # (Auto) 0.7 H Eos # (Auto) 0.0 Baso # (Auto) 0.03 Absolute Neuts (auto) 2.41 pO2 VBG pH VBG pCO2 VBG HCO3 VBG Total CO2 VBG O2 Sat (Calc) VBG Base Excess VBG Potassium Glucose Lactate FiO2 Crit Value Called To Crit Value Called By Blood Gas Notified Time Sodium Potassium Chloride Carbon Dioxide Anion Gap BUN Creatinine Est GFR ( Amer) Est GFR (Non-Af Amer) Random Glucose Serum Osmolality Calcium Phosphorus Magnesium Total Bilirubin AST ALT Alkaline Phosphatase Total Protein Albumin Globulin Albumin/Globulin Ratio Procalcitonin Venous Blood Potassium Salicylates < 1 L Acetaminophen < 10.0 L Alcohol, Quantitative 60 H 07/15/18 07/15/18 07/15/18 10:54 12:00 12:00 WBC RBC Hgb Hct MCV MCH MCHC RDW Plt Count MPV Neut % (Auto) Lymph % (Auto) [place] % (Auto) Eos % (Auto) Baso % (Auto) Lymph # (Auto) [place] # (Auto) Eos # (Auto) Baso # (Auto) Absolute Neuts (auto) pO2 VBG pH VBG pCO2 VBG HCO3 VBG Total CO2 VBG O2 Sat (Calc) VBG Base Excess VBG Potassium Glucose Lactate FiO2 Crit Value Called To Crit Value Called By Blood Gas Notified Time Sodium 147 Potassium 4.3 Chloride 111 H Carbon Dioxide 14 L Anion Gap 26 H BUN 6 L Creatinine 1.0 Est GFR ( Amer) > 60 Est GFR (Non-Af Amer) > 60 Random Glucose 129 H Serum Osmolality 313 H Calcium 10.1 Phosphorus Magnesium 2.0 Total Bilirubin 0.7 AST 47 ALT 100 H Alkaline Phosphatase 81 Total Protein 7.7 Albumin 4.7 Globulin 3.0 Albumin/Globulin Ratio 1.6 Procalcitonin < 0.05 L Venous Blood Potassium Salicylates Acetaminophen Alcohol, Quantitative 07/15/18 07/15/18 07/16/18 14:20 19:58 05:00 WBC 5.5 D RBC 3.98 Hgb 13.2 L Hct 40.7 L MCV 102.3 MCH 33.2 MCHC 32.4 RDW 14.3 Plt Count 229 MPV 8.8 Neut % (Auto) 66.0 Lymph % (Auto) 20.6 L [place] % (Auto) 13.0 H Eos % (Auto) 0.0 L Baso % (Auto) 0.4 Lymph # (Auto) 1.1 L [place] # (Auto) 0.7 H Eos # (Auto) 0.0 Baso # (Auto) 0.02 Absolute Neuts (auto) 3.65 pO2 104 H 193 H VBG pH 7.49 H 7.45 H VBG pCO2 23.0 L 28.0 L VBG HCO3 17.5 L 19.5 L VBG Total CO2 18.2 L 20.4 L VBG O2 Sat (Calc) 98.5 H 99.3 H VBG Base Excess -3.9 L -3.2 L VBG Potassium 3.7 3.5 L Glucose 101 116 H Lactate 5.8 H* 1.9 FiO2 21.0 21.0 Crit Value Called To Joelle salinas Crit Value Called By Rst Dariel Blood Gas Notified Time 1429 2025 Sodium 144.0 144.0 Potassium Chloride 116.0 H 116.0 H Carbon Dioxide Anion Gap BUN Creatinine Est GFR ( Amer) Est GFR (Non-Af Amer) Random Glucose Serum Osmolality Calcium Phosphorus Magnesium Total Bilirubin AST ALT Alkaline Phosphatase Total Protein Albumin Globulin Albumin/Globulin Ratio Procalcitonin Venous Blood Potassium 3.7 3.5 L Salicylates Acetaminophen Alcohol, Quantitative 07/16/18 05:00 WBC RBC Hgb Hct MCV MCH MCHC RDW Plt Count MPV Neut % (Auto) Lymph % (Auto) [place] % (Auto) Eos % (Auto) Baso % (Auto) Lymph # (Auto) [place] # (Auto) Eos # (Auto) Baso # (Auto) Absolute Neuts (auto) pO2 VBG pH VBG pCO2 VBG HCO3 VBG Total CO2 VBG O2 Sat (Calc) VBG Base Excess VBG Potassium Glucose Lactate FiO2 Crit Value Called To Crit Value Called By Blood Gas Notified Time Sodium 148 Potassium 4.0 Chloride 116 H Carbon Dioxide 22 Anion Gap 14 BUN 9 Creatinine 0.9 Est GFR ( Amer) > 60 Est GFR (Non-Af Amer) > 60 Random Glucose 98 Serum Osmolality Calcium 10.2 Phosphorus 4.3 Magnesium 2.3 H Total Bilirubin 1.2 AST 52 ALT 81 H Alkaline Phosphatase 88 Total Protein 7.3 Albumin 4.3 Globulin 3.0 Albumin/Globulin Ratio 1.5 Procalcitonin Venous Blood Potassium Salicylates Acetaminophen Alcohol, Quantitative Radiology Impressions: Radiology Impressions Chest X-Ray 07/15/18 12:08 IMPRESSION: No active disease. EKG/Cardiology Studies: Cardiology / EKG Studies 07/15/18 10:56 ELECTROCARDIOGRAM Stat Comment: Reason For Exam: r/o arrhythmia Review of Systems - Review of Systems Review of Systems: 12 point ROS completed and negative except as described in HPI. Assessment/Plan - Assessment and Plan (Free Text) Assessment: 52 yo M with PMHx of Bipolar disorder, gout, and hx of alcohol abuse who was b rought in by ambulance after overdosing on Klonopin and Seroquel while drinking vodka. Due to requiring sedation with precedex for alcohol/benzo withdrawal and possible DTs, patient currently under MICU care for monitoring. Neuro: -Discontinue Precedex -AAOx3 at this time, no FND, moving extremities past midline. -CIWA downtrending -Continue to monitor neuro status closely. -Reorient patient as necessary. Cardio: -RRR, normotensive, no signs of HD compromise -F/U echo -Maintain MAP>65. -Monitor for S/S, HD compromise. Pulm: -No signs of respiratory distress. CTA B/L -Maintain O2 saturation>92%. -O2 NC PRN -Elevate bed to 30 degrees GI: -Regular diet pending bedside swallow eval -Protonix /Nephro: -BUN/Cr stable -Urology consulted after initial issue inserting Williamson catheter s/p 815 cc bladder retention -Good urine output currently, 800 cc overnight -F/U urine lytes -Continue monitoring. -Replete electrolytes as needed. -Maintain euvolemia. Endocrinology: -Random glucose: 98 -Maintain euglycemia. Heme/Onc: -H/H stable -No signs of HD compromise. -Continue monitoring H/H ID: -Afebrile, no leukocytosis -Procalcitonin <0.05 -F/U blood and urine cx results -Lactate decreased -Monitor for signs and symptoms of infection. Psych - ETOH level 60 - F/U UDS - Dr. Navas consulted - f/u recs DVT prophylaxis: SCD Code Status: Full code Patient seen, case reviewed and plan approved by Dr. Telma Neves. Phil Tirado, PGY-1 <Cornelius Neves - Last Filed: 07/16/18 11:48> CCU Objective - Vital Signs / Intake & Output Vital Signs (Last 4 hours): Vital Signs Temp Pulse Resp BP Pulse Ox 07/16/18 10:00 56 L 13 138/81 95 07/16/18 09:50 69 96 07/16/18 09:40 76 23 95 07/16/18 09:30 79 26 H 97 07/16/18 09:25 73 14 147/92 H 96 07/16/18 09:20 87 20 94 L 07/16/18 09:10 70 22 95 07/16/18 09:00 88 18 95 07/16/18 08:50 86 24 96 07/16/18 08:40 75 95 07/16/18 08:30 72 15 95 07/16/18 08:28 79 17 07/16/18 08:20 95 H 22 96 07/16/18 08:10 77 14 94 L 07/16/18 08:00 97.6 F 83 24 146/78 94 L 07/16/18 07:50 81 14 95 Intake and Output (Last 8hrs): Intake & Output 07/15/18 07/16/18 07/16/18 22:59 06:59 14:59 Intake Total 90 Output Total 0 Balance 90 Weight 70.76 kg 72.575 kg Intake: IV 90 Output: Urine 0 - Medications Active Medications: Active Medications Generic Name Dose Route Start Last Admin Trade Name Freq PRN Reason Stop Dose Admin Albuterol/Ipratropium 3 ml 07/15/18 13:30 Duoneb 3 Mg/0.5 Mg (3 Ml) Ud IH [id number] PRN Shortness of Breath Folic Acid 1 mg 07/16/18 10:45 07/16/18 11:37 Folic Acid PO 1 mg DAILY SANDIE Administration Lactated Ringer's 1,000 mls @ 100 mls/hr 07/16/18 11:00 07/16/18 11:37 Lactated Ringer's IV 100 mls/hr .Q10H SANDIE Administration Dexmedetomidine HCl 400 mcg in 100 mls @ 3.629 mls/hr 07/16/18 11:26 07/16/18 11:40 Precedex 400mcg/100ml IV 0.2 mcg/kg/hr .Q24H PRN 3.629 mls/hr Agitation Administration Protocol 0.2 MCG/KG/HR Multivitamins 1 tab 07/17/18 08:00 Thera Tab PO 0800 SANDIE Thiamine HCl 100 mg 07/16/18 10:45 07/16/18 11:37 Vitamin B1 Tab PO 100 mg DAILY SANDIE Administration - Patient Studies Lab Studies: Lab Studies 07/16/18 07/16/18 07/16/18 Range/Units 08:40 05:00 05:00 WBC 5.5 D (4.5-11.0) 10^3/uL RBC 3.98 (3.5-6.1) 10^6/uL Hgb 13.2 L (14.0-18.0) g/dL Hct 40.7 L (42.0-52.0) % MCV 102.3 (80.0-105.0) fl MCH 33.2 (25.0-35.0) pg MCHC 32.4 (31.0-37.0) g/dl RDW 14.3 (11.5-14.5) % Plt Count 229 (120.0-450.0) 10^3/uL MPV 8.8 (7.0-11.0) fl Neut % (Auto) 66.0 (50.0-68.0) % Lymph % (Auto) 20.6 L (22.0-35.0) % [place] % (Auto) 13.0 H (1.0-6.0) % Eos % (Auto) 0.0 L (1.5-5.0) % Baso % (Auto) 0.4 (0.0-3.0) % Lymph # (Auto) 1.1 L (1.2-3.4) [place] # (Auto) 0.7 H (0.1-0.6) Eos # (Auto) 0.0 (0.0-0.7) Baso # (Auto) 0.02 (0.0-2.0) K/mm3 Absolute Neuts (auto) 3.65 (1.4-6.5) pO2 (30-55) mm/Hg VBG pH (7.32-7.43) VBG pCO2 (40-60) VBG HCO3 (21-28) mmol/l VBG Total CO2 (22-28) mmol.L VBG O2 Sat (Calc) (40-65) % VBG Base Excess (0.0-2.0) mmol/L VBG Potassium (3.6-5.2) mmol/L Sodium 148 (132-148) mmol/L Chloride 116 H (98-107) mmol/L Glucose (75-110) mg/dl Lactate (0.7-2.1) mmol/L FiO2 % Crit Value Called To Crit Value Called By Blood Gas Notified Time Potassium 4.0 (3.6-5.0) mmol/L Carbon Dioxide 22 (21-33) mmol/L Anion Gap 14 (10-20) BUN 9 (7-21) mg/dL Creatinine 0.9 (0.8-1.5) mg/dl Est GFR ( Amer) > 60 Est GFR (Non-Af Amer) > 60 Random Glucose 98 (70-110) mg/dL Serum Osmolality (272-300) mosm/kg Calcium 10.2 (8.4-10.5) mg/dL Phosphorus 4.3 (2.5-4.5) mg/dL Magnesium 2.3 H (1.7-2.2) mg/dL Total Bilirubin 1.2 (0.2-1.3) mg/dL AST 52 (17-59) U/L ALT 81 H (7-56) U/L Alkaline Phosphatase 88 (38-126) U/L Total Protein 7.3 (5.8-8.3) g/dL Albumin 4.3 (3.0-4.8) g/dL Globulin 3.0 gm/dL Albumin/Globulin Ratio 1.5 (1.1-1.8) Procalcitonin (0.19-0.49) NG/ML Venous Blood Potassium (3.6-5.2) mmol/L Urine Opiates Screen Negative (NEGATIVE) Urine Methadone Screen Negative (NEGATIVE) Ur Barbiturates Screen Negative (NEGATIVE) Ur Phencyclidine Scrn Negative (NEGATIVE) Ur Amphetamines Screen Negative (NEGATIVE) U Benzodiazepines Scrn Positive H (NEGATIVE) U Oth Cocaine Metabols Negative (NEGATIVE) U Cannabinoids Screen Negative (NEGATIVE) 07/15/18 07/15/18 07/15/18 Range/Units 19:58 14:20 12:00 WBC (4.5-11.0) 10^3/uL RBC (3.5-6.1) 10^6/uL Hgb (14.0-18.0) g/dL Hct (42.0-52.0) % MCV (80.0-105.0) fl MCH (25.0-35.0) pg MCHC (31.0-37.0) g/dl RDW (11.5-14.5) % Plt Count (120.0-450.0) 10^3/uL MPV (7.0-11.0) fl Neut % (Auto) (50.0-68.0) % Lymph % (Auto) (22.0-35.0) % [place] % (Auto) (1.0-6.0) % Eos % (Auto) (1.5-5.0) % Baso % (Auto) (0.0-3.0) % Lymph # (Auto) (1.2-3.4) [place] # (Auto) (0.1-0.6) Eos # (Auto) (0.0-0.7) Baso # (Auto) (0.0-2.0) K/mm3 Absolute Neuts (auto) (1.4-6.5) pO2 193 H 104 H (30-55) mm/Hg VBG pH 7.45 H 7.49 H (7.32-7.43) VBG pCO2 28.0 L 23.0 L (40-60) VBG HCO3 19.5 L 17.5 L (21-28) mmol/l VBG Total CO2 20.4 L 18.2 L (22-28) mmol.L VBG O2 Sat (Calc) 99.3 H 98.5 H (40-65) % VBG Base Excess -3.2 L -3.9 L (0.0-2.0) mmol/L VBG Potassium 3.5 L 3.7 (3.6-5.2) mmol/L Sodium 144.0 144.0 (132-148) mmol/L Chloride 116.0 H 116.0 H (98-107) mmol/L Glucose 116 H 101 (75-110) mg/dl Lactate 1.9 5.8 H* (0.7-2.1) mmol/L FiO2 21.0 21.0 % Crit Value Called To Brenda Lai rn Crit Value Called By Dariel Rush Blood Gas Notified Time 2025 1430 Potassium (3.6-5.0) mmol/L Carbon Dioxide (21-33) mmol/L Anion Gap (10-20) BUN (7-21) mg/dL Creatinine (0.8-1.5) mg/dl Est GFR ( Amer) Est GFR (Non-Af Amer) Random Glucose (70-110) mg/dL Serum Osmolality (272-300) mosm/kg Calcium (8.4-10.5) mg/dL Phosphorus (2.5-4.5) mg/dL Magnesium (1.7-2.2) mg/dL Total Bilirubin (0.2-1.3) mg/dL AST (17-59) U/L ALT (7-56) U/L Alkaline Phosphatase (38-126) U/L Total Protein (5.8-8.3) g/dL Albumin (3.0-4.8) g/dL Globulin gm/dL Albumin/Globulin Ratio (1.1-1.8) Procalcitonin < 0.05 L (0.19-0.49) NG/ML Venous Blood Potassium 3.5 L 3.7 (3.6-5.2) mmol/L Urine Opiates Screen (NEGATIVE) Urine Methadone Screen (NEGATIVE) Ur Barbiturates Screen (NEGATIVE) Ur Phencyclidine Scrn (NEGATIVE) Ur Amphetamines Screen (NEGATIVE) U Benzodiazepines Scrn (NEGATIVE) U Oth Cocaine Metabols (NEGATIVE) U Cannabinoids Screen (NEGATIVE) 07/15/18 Range/Units 12:00 WBC (4.5-11.0) 10^3/uL RBC (3.5-6.1) 10^6/uL Hgb (14.0-18.0) g/dL Hct (42.0-52.0) % MCV (80.0-105.0) fl MCH (25.0-35.0) pg MCHC (31.0-37.0) g/dl RDW (11.5-14.5) % Plt Count (120.0-450.0) 10^3/uL MPV (7.0-11.0) fl Neut % (Auto) (50.0-68.0) % Lymph % (Auto) (22.0-35.0) % [place] % (Auto) (1.0-6.0) % Eos % (Auto) (1.5-5.0) % Baso % (Auto) (0.0-3.0) % Lymph # (Auto) (1.2-3.4) [place] # (Auto) (0.1-0.6) Eos # (Auto) (0.0-0.7) Baso # (Auto) (0.0-2.0) K/mm3 Absolute Neuts (auto) (1.4-6.5) pO2 (30-55) mm/Hg VBG pH (7.32-7.43) VBG pCO2 (40-60) VBG HCO3 (21-28) mmol/l VBG Total CO2 (22-28) mmol.L VBG O2 Sat (Calc) (40-65) % VBG Base Excess (0.0-2.0) mmol/L VBG Potassium (3.6-5.2) mmol/L Sodium (132-148) mmol/L Chloride (98-107) mmol/L Glucose (75-110) mg/dl Lactate (0.7-2.1) mmol/L FiO2 % Crit Value Called To Crit Value Called By Blood Gas Notified Time Potassium (3.6-5.0) mmol/L Carbon Dioxide (21-33) mmol/L Anion Gap (10-20) BUN (7-21) mg/dL Creatinine (0.8-1.5) mg/dl Est GFR ( Amer) Est GFR (Non-Af Amer) Random Glucose (70-110) mg/dL Serum Osmolality 313 H (272-300) mosm/kg Calcium (8.4-10.5) mg/dL Phosphorus (2.5-4.5) mg/dL Magnesium (1.7-2.2) mg/dL Total Bilirubin (0.2-1.3) mg/dL AST (17-59) U/L ALT (7-56) U/L Alkaline Phosphatase (38-126) U/L Total Protein (5.8-8.3) g/dL Albumin (3.0-4.8) g/dL Globulin gm/dL Albumin/Globulin Ratio (1.1-1.8) Procalcitonin (0.19-0.49) NG/ML Venous Blood Potassium (3.6-5.2) mmol/L Urine Opiates Screen (NEGATIVE) Urine Methadone Screen (NEGATIVE) Ur Barbiturates Screen (NEGATIVE) Ur Phencyclidine Scrn (NEGATIVE) Ur Amphetamines Screen (NEGATIVE) U Benzodiazepines Scrn (NEGATIVE) U Oth Cocaine Metabols (NEGATIVE) U Cannabinoids Screen (NEGATIVE) Laboratory Results - last 24 hr 07/15/18 07/15/18 07/15/18 12:00 12:00 14:20 WBC RBC Hgb Hct MCV MCH MCHC RDW Plt Count MPV Neut % (Auto) Lymph % (Auto) [place] % (Auto) Eos % (Auto) Baso % (Auto) Lymph # (Auto) [place] # (Auto) Eos # (Auto) Baso # (Auto) Absolute Neuts (auto) pO2 104 H VBG pH 7.49 H VBG pCO2 23.0 L VBG HCO3 17.5 L VBG Total CO2 18.2 L VBG O2 Sat (Calc) 98.5 H VBG Base Excess -3.9 L VBG Potassium 3.7 Sodium 144.0 Chloride 116.0 H Glucose 101 Lactate 5.8 H* FiO2 21.0 Crit Value Called To Joelle clark Crit Value Called By Rst Blood Gas Notified Time 1430 Potassium Carbon Dioxide Anion Gap BUN Creatinine Est GFR ( Amer) Est GFR (Non-Af Amer) Random Glucose Serum Osmolality 313 H Calcium Phosphorus Magnesium Total Bilirubin AST ALT Alkaline Phosphatase Total Protein Albumin Globulin Albumin/Globulin Ratio Procalcitonin < 0.05 L Venous Blood Potassium 3.7 Urine Opiates Screen Urine Methadone Screen Ur Barbiturates Screen Ur Phencyclidine Scrn Ur Amphetamines Screen U Benzodiazepines Scrn U Oth Cocaine Metabols U Cannabinoids Screen 07/15/18 07/16/18 07/16/18 19:58 05:00 05:00 WBC 5.5 D RBC 3.98 Hgb 13.2 L Hct 40.7 L MCV 102.3 MCH 33.2 MCHC 32.4 RDW 14.3 Plt Count 229 MPV 8.8 Neut % (Auto) 66.0 Lymph % (Auto) 20.6 L [place] % (Auto) 13.0 H Eos % (Auto) 0.0 L Baso % (Auto) 0.4 Lymph # (Auto) 1.1 L [place] # (Auto) 0.7 H Eos # (Auto) 0.0 Baso # (Auto) 0.02 Absolute Neuts (auto) 3.65 pO2 193 H VBG pH 7.45 H VBG pCO2 28.0 L VBG HCO3 19.5 L VBG Total CO2 20.4 L VBG O2 Sat (Calc) 99.3 H VBG Base Excess -3.2 L VBG Potassium 3.5 L Sodium 144.0 148 Chloride 116.0 H 116 H Glucose 116 H Lactate 1.9 FiO2 21.0 Crit Value Called To Brenda salinas Crit Value Called By Dariel Blood Gas Notified Time 2025 Potassium 4.0 Carbon Dioxide 22 Anion Gap 14 BUN 9 Creatinine 0.9 Est GFR ( Amer) > 60 Est GFR (Non-Af Amer) > 60 Random Glucose 98 Serum Osmolality Calcium 10.2 Phosphorus 4.3 Magnesium 2.3 H Total Bilirubin 1.2 AST 52 ALT 81 H Alkaline Phosphatase 88 Total Protein 7.3 Albumin 4.3 Globulin 3.0 Albumin/Globulin Ratio 1.5 Procalcitonin Venous Blood Potassium 3.5 L Urine Opiates Screen Urine Methadone Screen Ur Barbiturates Screen Ur Phencyclidine Scrn Ur Amphetamines Screen U Benzodiazepines Scrn U Oth Cocaine Metabols U Cannabinoids Screen 07/16/18 08:40 WBC RBC Hgb Hct MCV MCH MCHC RDW Plt Count MPV Neut % (Auto) Lymph % (Auto) [place] % (Auto) Eos % (Auto) Baso % (Auto) Lymph # (Auto) [place] # (Auto) Eos # (Auto) Baso # (Auto) Absolute Neuts (auto) pO2 VBG pH VBG pCO2 VBG HCO3 VBG Total CO2 VBG O2 Sat (Calc) VBG Base Excess VBG Potassium Sodium Chloride Glucose Lactate FiO2 Crit Value Called To Crit Value Called By Blood Gas Notified Time Potassium Carbon Dioxide Anion Gap BUN Creatinine Est GFR ( Amer) Est GFR (Non-Af Amer) Random Glucose Serum Osmolality Calcium Phosphorus Magnesium Total Bilirubin AST ALT Alkaline Phosphatase Total Protein Albumin Globulin Albumin/Globulin Ratio Procalcitonin Venous Blood Potassium Urine Opiates Screen Negative Urine Methadone Screen Negative Ur Barbiturates Screen Negative Ur Phencyclidine Scrn Negative Ur Amphetamines Screen Negative U Benzodiazepines Scrn Positive H U Oth Cocaine Metabols Negative U Cannabinoids Screen Negative Radiology Impressions: Radiology Impressions Chest X-Ray 07/15/18 12:08 IMPRESSION: No active disease. EKG/Cardiology Studies: Cardiology / EKG Studies 07/15/18 10:56 ELECTROCARDIOGRAM Stat Comment: Reason For Exam: r/o arrhythmia Critical Care Progress Note - Nutrition Nutrition: Nutrition Category Date Time Status Regular Diet [DIET] Diets 07/16/18 Breakfast Ordered Addendum Addendum: 07/16/18 11:46 MICU attending addendum Patient seen and examined with housestaff Agree with note above with the following add/exceptions: 52 yM with Bipolar disorder, and alcohol abuse admitted with agitation and delirium likely fro etoh withdrawal. Stable on precedex for now will transition to librium PO and wean off precedex patient much calmer and alert today order diet hep sq dvt ppx gi ppx not indicated rest of care as per resident note above Jimmy Neves MD MICU attending
[2018-07-16 09:12] LABS: BARBITURATES, UR NEGATIVE (NEGATIVE); BENZODIAZEPINES, UR POSITIVE (NEGATIVE); OPIATES, UR NEGATIVE (NEGATIVE); PHENCYCLIDINE, UR NEGATIVE (NEGATIVE)
--- NOTE | 2018-07-16 10:02 | CP.PCM.PN ---
<DesireePrakash - Last Filed: 07/16/18 11:02> Subjective - Date & Time of Evaluation Date of Evaluation: 07/16/18 Time of Evaluation: 09:59 - Subjective Subjective: Medicine progress note - Desiree, PGY - 2 Patient seen and examined at bedside. Patient was agitated overnight and put in restraints. Patient presents no new acute complaints; states that he follows with a psychiatrist here in [place]. Patient denies any chest pain or shortness of breath. Objective - Vital Signs/Intake and Output Vital Signs (last 24 hours): Temp Pulse Resp BP Pulse Ox 98.3 F 54 L 20 114/71 100 07/15/18 17:00 07/16/18 04:00 07/15/18 22:07 07/15/18 16:06 07/15/18 16:44 Intake and Output: 07/16/18 07/16/18 06:59 18:59 Intake Total 90 Balance 90 - Medications Medications: Current Medications Albuterol/Ipratropium (Duoneb 3 Mg/0.5 Mg (3 Ml) Ud) 3 ml IH [id number] PRN PRN Reason: Shortness of Breath Dexmedetomidine HCl (Precedex 400mcg/100ml) 400 mcg in 100 mls @ 8.845 mls/hr IV .[id number] PRN; Protocol PRN Reason: Agitation Last Admin: 07/15/18 20:56 Dose: 0.9 mcg/kg/hr, 15.921 mls/hr - Labs Labs: 07/16/18 05:00 07/16/18 05:00 - Constitutional Appears: Non-toxic, Confused - Head Exam Head Exam: ATRAUMATIC, NORMAL INSPECTION, NORMOCEPHALIC - Eye Exam Eye Exam: EOMI, Normal appearance, PERRL Pupil Exam: NORMAL ACCOMODATION, PERRL - ENT Exam ENT Exam: Mucous Membranes Moist, Normal Exam - Neck Exam Neck Exam: Full ROM, Normal Inspection. absent: Lymphadenopathy - Respiratory Exam Respiratory Exam: Clear to Ausculation Bilateral, NORMAL BREATHING PATTERN - Cardiovascular Exam Cardiovascular Exam: REGULAR RHYTHM, +S1, +S2. absent: Murmur - GI/Abdominal Exam GI & Abdominal Exam: Soft, Normal Bowel Sounds. absent: Tenderness - Extremities Exam Extremities Exam: Full ROM, Normal Capillary Refill, Normal Inspection. absent: Joint Swelling, Pedal Edema - Back Exam Back Exam: NORMAL INSPECTION - Neurological Exam Neurological Exam: Alert, Awake, CN II-XII Intact, Normal Gait, Oriented x3 - Psychiatric Exam Psychiatric exam: Normal Affect, Normal Mood - Skin Skin Exam: Dry, Intact, Normal Color, Warm - Additional Findings Additional findings: Patient in bilateral restraints; Incorrectly answers some orientation questions Appears unkempt Assessment and Plan - Assessment and Plan (Free Text) Assessment: This is a 52 yo M with PMH of Bipolar disorder, gout, and hx of alcohol abuse wh o was brought in by ambulance after overdosing on Klonopin while drinking excessively (vodka). He is being admitted for alcohol/benzo withdrawal, possible DTs. Due to requiring sedation with precedex, patient was admitted to the MICU. Patient's physical exam is not indicative of DT's; he is confused on exam but is not altered. At this time, patient likely not having DT's or severe withdrawals. Septic workup is pending, but I currently do not see any source of infection and patient is without SIRS criteria; qSOFA criteria he was AMS yesterday, but we have good alternative diagnoses for that. : Agitation/AMS - likely 2/2 Klonopin + Alcohol OD : Mixed HAGMA + Respiratory Alkalosis - likely 2/2 EtOH intox + lactic acidosis with Hypervent due to acute klonopin overdose - Resolving : Bipolar disorder : Transaminitis - Resolving : Hyperchloremia likely 2/2 dehydration from acute alcohol intoxication - Resolving : Potential urinary obstruction/rentention - Resolved Plan: - Discontinue precedex - No need for Williamson, patient is now urinating - IVF, multivitamin, folic acid, thiamine for alcohol abuse - Continue IVF as above for acidosis; use LR given hyperchloremia - Transaminitis not consistent with acute alcohol intoxication, but will monitor for now - may need hepatitis workup outpatient - Follow up with poison control recs as per ICU <Mali Mcconnell - Last Filed: 07/16/18 15:33> Objective - Vital Signs/Intake and Output Vital Signs (last 24 hours): Temp Pulse Resp BP Pulse Ox 98.6 F 77 13 138/81 95 07/16/18 12:00 07/16/18 12:00 07/16/18 10:00 07/16/18 10:00 07/16/18 10:00 Intake and Output: 07/16/18 07/16/18 06:59 18:59 Intake Total 90 Balance 90 - Medications Medications: Current Medications Albuterol/Ipratropium (Duoneb 3 Mg/0.5 Mg (3 Ml) Ud) 3 ml IH [id number] PRN PRN Reason: Shortness of Breath Chlordiazepoxide (Librium) 10 mg PO Q6 SANDIE; Protocol Last Admin: 07/16/18 12:13 Dose: 10 mg Folic Acid (Folic Acid) 1 mg PO DAILY SANDIE Last Admin: 07/16/18 11:37 Dose: 1 mg Heparin Sodium (Porcine) (Heparin) 5,000 units SC Q8 [facility]; Protocol Last Admin: 07/16/18 13:52 Dose: 5,000 units Lactated Ringer's (Lactated Ringer's) 1,000 mls @ 100 mls/hr IV .Q10H SANDIE Last Admin: 07/16/18 11:37 Dose: 100 mls/hr Dexmedetomidine HCl (Precedex 400mcg/100ml) 400 mcg in 100 mls @ 3.629 mls/hr IV .Q24H PRN; Protocol PRN Reason: Agitation Last Admin: 07/16/18 11:40 Dose: 0.2 mcg/kg/hr, 3.629 mls/hr Multivitamins (Thera Tab) 1 tab PO 0800 [facility] Thiamine HCl (Vitamin B1 Tab) 100 mg PO DAILY [facility] Last Admin: 07/16/18 11:37 Dose: 100 mg - Labs Labs: 07/16/18 05:00 07/16/18 05:00 Attending/Attestation - Attestation I have personally seen and examined this patient.: Yes I have fully participated in the care of the patient.: Yes I have reviewed all pertinent clinical information, including history, physical exam and plan: Yes Notes (Text): 07/16/18 15:32 Medical record note made by the resident after discussion with my direction and input after the patient was personally seen and examined by me. I have reviewed the chart and agree that the record accurately reflects by personal performance of the history, physical exam, data review, and medical decision-making, in the course for the patient. I have also personally directed the plan of care.
[2018-07-16] MEDS ORDERED: Sodium Chloride 0.9% 1,000 ML IV SCH (10:15)
[2018-07-16] MEDS: Lactated Ringer's 1,000 ML IV SCH (11:37)
[2018-07-16] MEDS: Dexmedetomidine 400mcg/100mL 400 MCG/100 ML BOTTLE IV PRN (11:40)
--- NOTE | 2018-07-16 16:03 | CARD ---
APPROVED REPORT Date of service: 07/16/2018 EXAM: Two-dimensional and M-mode echocardiogram with Doppler and color Doppler. INDICATION BASELINE ECHO 2D DIMENSIONS Left Atrium (2D)3.7 (1.6-4.0cm)IVSd1.2 (0.7-1.1cm) LVDd4.5 (3.9-5.9cm)PWd1.2 (0.7-1.1cm) LVDs3.5 (2.5-4.0cm)FS (%) 22.7 % LVEF (%)45.8 (>50%) M-Mode DIMENSIONS Aortic Root3.20 (2.2-3.7cm)Aortic Cusp Exc.1.80 (1.5-2.0cm) Aortic Valve AoV Peak Zcuyxwsd477.0cm/Tong Peak GR.6mmHg Mitral Valve MV E Jhqkiegf23.4cm/sMV A Uywbeptu17.2cm/sE/A ratio0.7 TDI E/Lateral E'0.0E/Medial E'0.0 Tricuspid Valve TR Peak [id number]/sRAP [id number] Peak Gr.16mmHg [id number] LEFT VENTRICLE The left ventricle is normal size. There is normal left ventricular wall thickness. The systolic function is mildly impaired. Regional wall motion abnormalities noted. Transmitral Doppler flow pattern is Grade I-abnormal relaxation pattern. No left ventricle thrombus noted on this study. There is no ventricular septal defect visualized. RIGHT VENTRICLE The right ventricle is normal size. There is normal right ventricular wall thickness. The right ventricular systolic function is normal. ATRIA The left atrium size is normal. The right atrium size is normal. The interatrial septum is intact with no evidence for an atrial septal defect. AORTIC VALVE The aortic valve is normal in structure. No aortic regurgitation is present. There is no aortic valvular stenosis. MITRAL VALVE The mitral valve is normal in structure. There is no mitral valve regurgitation noted. There is no mitral valve stenosis. TRICUSPID VALVE The tricuspid valve is normal in structure. There is no tricuspid valve regurgitation noted. There is no tricuspid valve stenosis. PULMONIC VALVE The pulmonary valve is normal in structure. There is no pulmonic valvular regurgitation. GREAT VESSELS The aortic root is normal in size. The IVC is normal in size and collapses >50% with inspiration. PERICARDIAL EFFUSION There is no pericardial effusion. <Conclusion> The left ventricle is normal size. There is normal left ventricular wall thickness. The systolic function is mildly impaired. Regional wall motion abnormalities noted. Transmitral Doppler flow pattern is Grade I-abnormal relaxation pattern.
[2018-07-17] MEDS: Dexmedetomidine 400mcg/100mL 400 MCG/100 ML BOTTLE IV PRN ×2 (00:01→05:46)
[2018-07-17] MEDS: Lactated Ringer's 1,000 ML IV SCH (03:16)
[2018-07-17 05:37] LABS: BASO # 0.01 K/mm3 (0.0-2.0); BASO % 0.2 % (0.0-3.0); HEMOGLOBIN 12.5 g/dL (14.0-18.0); LYMPH # 1.2 (1.2-3.4); LYMPH % 22.9 % (22.0-35.0); MEAN CORPUSCULAR HEMOGLOBIN 32.8 pg (25.0-35.0); MEAN CORPUSCULAR HGB CONC 32.8 g/dl (31.0-37.0); MEAN PLATELET VOLUME 8.7 fl (7.0-11.0); MONO # 0.5 (0.1-0.6); MONO % 9.3 % (1.0-6.0); RBC 3.81 10^6/uL (3.5-6.1); RED CELL DISTRIBUTION WIDTH 13.7 % (11.5-14.5); WHITE BLOOD COUNT 5.4 10^3/uL (4.5-11.0)
[2018-07-17 06:11] LABS: ALB/GLOB RATIO 1.4 (1.1-1.8); ALBUMIN 3.9 g/dL (3.0-4.8); ALT/SGPT 73 U/L (7-56); AST/SGOT 47 U/L (17-59); BLOOD UREA NITROGEN 11 mg/dL (7-21); CALCIUM 9.5 mg/dL (8.4-10.5); GFR NON-AFRICAN AMERICAN > 60
[2018-07-17] MEDS ORDERED: Potassium Chloride 20 mEq ER Tab PO STA (08:26)
[2018-07-17] MEDS: Multivitamin Therapeutic Tab PO SCH (09:31)
--- NOTE | 2018-07-17 10:20 | CP.CCUPN ---
<Phil Tirado - Last Filed: 07/17/18 10:16> CCU Subjective - Physician Review Subjective (Free Text): Phil Tirado PGY-1 Critical Care Progress Note Patient seen and evaluated at bedside. No acute events reported overnight. Patient resting comfortably sitting up in bed. Denies current chest pain, palpitations, shortness of breath, abdominal pain, leg pain or headaches. One loose BM reported late yesterday. CCU Objective - Vital Signs / Intake & Output Vital Signs (Last 4 hours): Vital Signs Temp Pulse Resp BP Pulse Ox 07/17/18 09:10 83 17 75 L 07/17/18 09:00 69 25 H 115/84 75 L 07/17/18 08:50 68 33 H 93 L 07/17/18 08:40 56 L 16 94 L 07/17/18 08:30 72 29 H 95 07/17/18 08:20 55 L 14 95 07/17/18 08:10 51 L 15 97 07/17/18 08:00 97.5 F L 54 L 10 L 167/87 H 69 L 07/17/18 07:50 57 L 18 77 L 07/17/18 07:47 59 L 21 86 L 07/17/18 07:30 58 L 19 94 L 07/17/18 07:20 50 L 28 H 93 L 07/17/18 07:10 67 17 92 L 07/17/18 07:00 163/94 H 07/17/18 06:59 58 L 12 94 L 07/17/18 06:50 73 16 80 L 07/17/18 06:40 46 L 10 L 96 07/17/18 06:30 46 L 96 07/17/18 06:20 44 L 14 96 Intake and Output (Last 8hrs): Intake & Output 07/16/18 07/17/18 07/17/18 22:59 06:59 14:59 Intake Total 200 50 Output Total 1200 Balance -1200 200 50 Intake: IV 200 50 Output: Urine 1200 Urine, Voided 1200 Other: # Voids Urine, Voided 2 - Physical Exam Other physical findings (Free Text): - Constitutional Appears: Non-toxic, Unkempt Additional comments: - Head Exam Head Exam: ATRAUMATIC, NORMAL INSPECTION, NORMOCEPHALIC - Eye Exam Additional comments: EOMI no scleral icterus appreciated - ENT Exam ENT Exam: Mucous Membranes Moist - Neck Exam Neck exam: Negative for: Lymphadenopathy, Thyromegaly - Respiratory Exam Respiratory Exam: Clear to Auscultation Bilateral, NORMAL BREATHING PATTERN. absent: Rales, Rhonchi, Wheezes - Cardiovascular Exam Cardiovascular Exam: REGULAR RHYTHM, +S1, +S2. absent: Bradycardia, Irregular Rhythm, JVD, +S4 - GI/Abdominal Exam GI & Abdominal Exam: Hyperactive Bowel Sounds, Soft. absent: Diminished Bowel Sounds, Distended, Firm, Hypoactive Bowel Sounds, Rigid, Tenderness - Extremities Exam Extremities exam: Positive for: normal capillary refill, normal inspection, pedal pulses present. Negative for: joint swelling, pedal edema - Neurological Exam Additional comments: AAOx3 - Skin Skin Exam: Dry, Intact, Normal Color, Warm - Medications Active Medications: Active Medications Generic Name Dose Route Start Last Admin Trade Name Freq PRN Reason Stop Dose Admin Albuterol/Ipratropium 3 ml 07/15/18 13:30 Duoneb 3 Mg/0.5 Mg (3 Ml) Ud IH [id number] PRN Shortness of Breath Chlordiazepoxide 10 mg 07/16/18 12:00 07/17/18 05:45 Librium PO 10 mg Q6 SANDIE Administration Protocol Folic Acid 1 mg 07/16/18 10:45 07/17/18 09:31 Folic Acid PO 1 mg DAILY SANDIE Administration Heparin Sodium (Porcine) 5,000 units 07/16/18 14:00 07/17/18 05:45 Heparin SC 5,000 units Q8 SANDIE Administration Protocol Dexmedetomidine HCl 400 mcg in 100 mls @ 3.629 mls/hr 07/16/18 11:26 07/17/18 07:00 Precedex 400mcg/100ml IV 0.3 mcg/kg/hr .Q24H PRN 5.443 mls/hr Agitation Titration Protocol 0.2 MCG/KG/HR Multivitamins 1 tab 07/17/18 08:00 07/17/18 09:31 Thera Tab PO 1 tab 0800 SANDIE Administration Thiamine HCl 100 mg 07/16/18 10:45 07/17/18 09:32 Vitamin B1 Tab PO 100 mg DAILY SANDIE Administration - Patient Studies Lab Studies: Microbiology Studies 07/15/18 20:01 MRSA Culture (Admit) - Final Naris MRSA NOT DETECTED 07/15/18 14:15 Blood Culture - Preliminary Blood NO GROWTH AFTER 24 HOURS 07/15/18 14:00 Blood Culture - Preliminary Blood NO GROWTH AFTER 24 HOURS Lab Studies 07/17/18 07/17/18 Range/Units 05:00 05:00 WBC 5.4 (4.5-11.0) 10^3/uL RBC 3.81 (3.5-6.1) 10^6/uL Hgb 12.5 L (14.0-18.0) g/dL Hct 38.1 L (42.0-52.0) % MCV 100.0 (80.0-105.0) fl MCH 32.8 (25.0-35.0) pg MCHC 32.8 (31.0-37.0) g/dl RDW 13.7 (11.5-14.5) % Plt Count 201 (120.0-450.0) 10^3/uL MPV 8.7 (7.0-11.0) fl Neut % (Auto) 67.6 (50.0-68.0) % Lymph % (Auto) 22.9 (22.0-35.0) % [place] % (Auto) 9.3 H (1.0-6.0) % Eos % (Auto) 0.0 L (1.5-5.0) % Baso % (Auto) 0.2 (0.0-3.0) % Lymph # (Auto) 1.2 (1.2-3.4) [place] # (Auto) 0.5 (0.1-0.6) Eos # (Auto) 0.0 (0.0-0.7) Baso # (Auto) 0.01 (0.0-2.0) K/mm3 Absolute Neuts (auto) 3.62 (1.4-6.5) Sodium 145 (132-148) mmol/L Potassium 3.5 L (3.6-5.0) mmol/L Chloride 112 H (98-107) mmol/L Carbon Dioxide 21 (21-33) mmol/L Anion Gap 15 (10-20) BUN 11 (7-21) mg/dL Creatinine 0.8 (0.8-1.5) mg/dl Est GFR ( Amer) > 60 Est GFR (Non-Af Amer) > 60 Random Glucose 116 H (70-110) mg/dL Calcium 9.5 (8.4-10.5) mg/dL Total Bilirubin 1.0 (0.2-1.3) mg/dL AST 47 (17-59) U/L ALT 73 H (7-56) U/L Alkaline Phosphatase 77 (38-126) U/L Total Protein 6.8 (5.8-8.3) g/dL Albumin 3.9 (3.0-4.8) g/dL Globulin 2.9 gm/dL Albumin/Globulin Ratio 1.4 (1.1-1.8) Laboratory Results - last 24 hr 07/17/18 07/17/18 05:00 05:00 WBC 5.4 RBC 3.81 Hgb 12.5 L Hct 38.1 L MCV 100.0 MCH 32.8 MCHC 32.8 RDW 13.7 Plt Count 201 MPV 8.7 Neut % (Auto) 67.6 Lymph % (Auto) 22.9 [place] % (Auto) 9.3 H Eos % (Auto) 0.0 L Baso % (Auto) 0.2 Lymph # (Auto) 1.2 [place] # (Auto) 0.5 Eos # (Auto) 0.0 Baso # (Auto) 0.01 Absolute Neuts (auto) 3.62 Sodium 145 Potassium 3.5 L Chloride 112 H Carbon Dioxide 21 Anion Gap 15 BUN 11 Creatinine 0.8 Est GFR ( Amer) > 60 Est GFR (Non-Af Amer) > 60 Random Glucose 116 H Calcium 9.5 Total Bilirubin 1.0 AST 47 ALT 73 H Alkaline Phosphatase 77 Total Protein 6.8 Albumin 3.9 Globulin 2.9 Albumin/Globulin Ratio 1.4 Review of Systems - Review of Systems Review of Systems: 12 point ROS completed and negative except as described in HPI. Critical Care Progress Note - Nutrition Nutrition: Nutrition Category Date Time Status Regular Diet [DIET] Diets 07/16/18 Breakfast Ordered Assessment/Plan - Assessment and Plan (Free Text) Assessment: 52 yo M with PMHx of Bipolar disorder, gout, and hx of alcohol abuse who was brought in by ambulance after overdosing on Klonopin and Seroquel while drinking vodka. Due to requiring sedation with precedex for alcohol/benzo withdrawal and possible DTs, patient currently under MICU care for monitoring. Neuro: -Wean down off Precedex -Continue Librium 10 q6 -AAOx3 at this time, no FND, moving extremities past midline. -CIWA downtrending -Continue to monitor neuro status closely. -Reorient patient as necessary Cardio: -RRR, normotensive, no signs of HD compromise -07/16 echo shows EF 46%, mildly impaired systolic function -Maintain MAP>65. -Monitor for S/S, HD compromise. Pulm: -No signs of respiratory distress. CTA B/L -Maintain O2 saturation>92%. -O2 NC PRN -Elevate bed to 30 degrees GI: -Regular diet -Protonix /Nephro: -BUN/Cr stable -Urology consulted after initial bladder retention, resolved -Good urine output currently, 1200 cc overnight -K repleted -F/U urine lytes -Continue monitoring. -Replete electrolytes as needed. -Maintain euvolemia. Endocrinology: -Random glucose: 116 -Maintain euglycemia. Heme/Onc: -H/H stable -No signs of HD compromise. -Continue monitoring H/H ID: -Afebrile, no leukocytosis -Procalcitonin <0.05 -Blood cx neg after 24 hours -F/U urine cx results -Lactate decreased -Monitor for signs and symptoms of infection. Psych - ETOH level 60 - UDS pos for benzos - Dr. Navas consulted - recs appreciated DVT prophylaxis: SCD Code Status: Full code Patient seen, case reviewed and plan approved by Dr. Telma Neves. Phil Tirado, PGY-1 <Cornelius Neves - Last Filed: 07/17/18 16:42> CCU Objective - Vital Signs / Intake & Output Vital Signs (Last 4 hours): Vital Signs Pulse Resp BP Pulse Ox 07/17/18 16:10 94 H 20 97 07/17/18 16:01 107 H 58 H 147/88 93 L 07/17/18 16:00 90 31 H 97 07/17/18 15:50 105 H 22 94 L 07/17/18 15:40 88 14 93 L 07/17/18 15:30 86 25 H 93 L 07/17/18 15:20 87 10 L 93 L 07/17/18 15:10 84 21 96 07/17/18 15:00 88 14 92 L 07/17/18 14:50 91 H 91 L 07/17/18 14:40 93 H 23 91 L 07/17/18 14:30 88 21 93 L 07/17/18 14:20 90 30 H 95 07/17/18 14:10 94 H 31 H 93 L 07/17/18 14:00 92 H 43 H 93 L 07/17/18 13:50 90 93 L 07/17/18 13:40 94 H 22 93 L 07/17/18 13:30 97 H 15 95 07/17/18 13:20 92 H 24 92 L 07/17/18 13:10 94 H 26 H 95 07/17/18 13:02 85 148/108 H 94 L 07/17/18 13:00 96 H 29 H 07/17/18 12:50 100 H 94 L 07/17/18 12:40 90 23 95 Intake and Output (Last 8hrs): Intake & Output 07/17/18 07/17/18 07/17/18 06:59 14:59 22:59 Intake Total 200 65 Output Total 120 Balance 200 -55 Intake: IV 200 65 Output: Urine 120 Urine, Voided 120 Other: # Voids Urine, Voided 1 # Bowel Movements 3 - Medications Active Medications: Active Medications Generic Name Dose Route Start Last Admin Trade Name Freq PRN Reason Stop Dose Admin Albuterol/Ipratropium 3 ml 07/15/18 13:30 Duoneb 3 Mg/0.5 Mg (3 Ml) Ud IH [id number] PRN Shortness of Breath Chlordiazepoxide 10 mg 07/16/18 12:00 07/17/18 12:45 Librium PO 10 mg Q6 SANDIE Administration Protocol Folic Acid 1 mg 07/16/18 10:45 07/17/18 09:31 Folic Acid PO 1 mg DAILY SANDIE Administration Heparin Sodium (Porcine) 5,000 units 07/16/18 14:00 07/17/18 14:40 Heparin SC 5,000 units Q8 [facility] Administration Protocol Multivitamins 1 tab 07/17/18 08:00 07/17/18 09:31 Thera Tab PO 1 tab 0800 SANDIE Administration Thiamine HCl 100 mg 07/16/18 10:45 07/17/18 09:32 Vitamin B1 Tab PO 100 mg DAILY SANDIE Administration - Patient Studies Lab Studies: Microbiology Studies 07/15/18 14:15 Blood Culture - Preliminary Blood NO GROWTH AFTER 48 HOURS 07/15/18 14:00 Blood Culture - Preliminary Blood NO GROWTH AFTER 48 HOURS 07/15/18 20:01 MRSA Culture (Admit) - Final Naris MRSA NOT DETECTED Lab Studies 07/17/18 07/17/18 Range/Units 05:00 05:00 WBC 5.4 (4.5-11.0) 10^3/uL RBC 3.81 (3.5-6.1) 10^6/uL Hgb 12.5 L (14.0-18.0) g/dL Hct 38.1 L (42.0-52.0) % MCV 100.0 (80.0-105.0) fl MCH 32.8 (25.0-35.0) pg MCHC 32.8 (31.0-37.0) g/dl RDW 13.7 (11.5-14.5) % Plt Count 201 (120.0-450.0) 10^3/uL MPV 8.7 (7.0-11.0) fl Neut % (Auto) 67.6 (50.0-68.0) % Lymph % (Auto) 22.9 (22.0-35.0) % [place] % (Auto) 9.3 H (1.0-6.0) % Eos % (Auto) 0.0 L (1.5-5.0) % Baso % (Auto) 0.2 (0.0-3.0) % Lymph # (Auto) 1.2 (1.2-3.4) [place] # (Auto) 0.5 (0.1-0.6) Eos # (Auto) 0.0 (0.0-0.7) Baso # (Auto) 0.01 (0.0-2.0) K/mm3 Absolute Neuts (auto) 3.62 (1.4-6.5) Sodium 145 (132-148) mmol/L Potassium 3.5 L (3.6-5.0) mmol/L Chloride 112 H (98-107) mmol/L Carbon Dioxide 21 (21-33) mmol/L Anion Gap 15 (10-20) BUN 11 (7-21) mg/dL Creatinine 0.8 (0.8-1.5) mg/dl Est GFR ( Amer) > 60 Est GFR (Non-Af Amer) > 60 Random Glucose 116 H (70-110) mg/dL Calcium 9.5 (8.4-10.5) mg/dL Total Bilirubin 1.0 (0.2-1.3) mg/dL AST 47 (17-59) U/L ALT 73 H (7-56) U/L Alkaline Phosphatase 77 (38-126) U/L Total Protein 6.8 (5.8-8.3) g/dL Albumin 3.9 (3.0-4.8) g/dL Globulin 2.9 gm/dL Albumin/Globulin Ratio 1.4 (1.1-1.8) Laboratory Results - last 24 hr 07/17/18 07/17/18 05:00 05:00 WBC 5.4 RBC 3.81 Hgb 12.5 L Hct 38.1 L MCV 100.0 MCH 32.8 MCHC 32.8 RDW 13.7 Plt Count 201 MPV 8.7 Neut % (Auto) 67.6 Lymph % (Auto) 22.9 [place] % (Auto) 9.3 H Eos % (Auto) 0.0 L Baso % (Auto) 0.2 Lymph # (Auto) 1.2 [place] # (Auto) 0.5 Eos # (Auto) 0.0 Baso # (Auto) 0.01 Absolute Neuts (auto) 3.62 Sodium 145 Potassium 3.5 L Chloride 112 H Carbon Dioxide 21 Anion Gap 15 BUN 11 Creatinine 0.8 Est GFR ( Amer) > 60 Est GFR (Non-Af Amer) > 60 Random Glucose 116 H Calcium 9.5 Total Bilirubin 1.0 AST 47 ALT 73 H Alkaline Phosphatase 77 Total Protein 6.8 Albumin 3.9 Globulin 2.9 Albumin/Globulin Ratio 1.4 Critical Care Progress Note - Nutrition Nutrition: Nutrition Category Date Time Status Regular Diet [DIET] Diets 07/16/18 Breakfast Ordered Addendum Addendum: 07/17/18 16:39 MICU attending addendum Patient seen and examined with housestaff Agree with note above with the following add/exceptions: 52 yM with Bipolar disorder, and alcohol abuse admitted with agitation and delirium likely fro etoh withdrawal. much mor controlled now since starting librium yesterday weaned off precedex ths morning patient not agitated or delirious need psych f/u and resume home psych meds one mediocations are confirmed ok to transfer eating regular diet hep sq dvt ppx gi ppx not indicated rest of care as per resident note above B Pura JEFFREY MICU attending
--- NOTE | 2018-07-17 12:08 | CP.PCM.PN ---
<Mohamud Lovell - Last Filed: 07/17/18 12:03> Subjective - Date & Time of Evaluation Date of Evaluation: 07/17/18 Time of Evaluation: 12:03 - Subjective Subjective: IM Progress Note for Dr. Enedina Lovell PGY2 IM Resident Patient seen and examined at bedside in ICU. Patient with slowed and slurred speech. Able to identify hospital setting and name, unable to identify date. Patient has insight on events leading up to hospital admission. Wishes to go home today. Patient instructed he needs further treatment and evaluation. Patient denies chest pain, shortness of breath, abdominal pain, nausea, vomiting, fever, chills, hallucinations auditory and visual. Objective - Vital Signs/Intake and Output Vital Signs (last 24 hours): Temp Pulse Resp BP Pulse Ox 97.5 F L 83 17 115/84 75 L 07/17/18 08:00 07/17/18 09:10 07/17/18 09:10 07/17/18 09:00 07/17/18 09:10 Intake and Output: 07/17/18 07/17/18 06:59 18:59 Intake Total 200 65 Balance 200 65 - Medications Medications: Current Medications Albuterol/Ipratropium (Duoneb 3 Mg/0.5 Mg (3 Ml) Ud) 3 ml IH [id number] PRN PRN Reason: Shortness of Breath Chlordiazepoxide (Librium) 10 mg PO Q6 [facility]; Protocol Last Admin: 07/17/18 05:45 Dose: 10 mg Folic Acid (Folic Acid) 1 mg PO DAILY [facility] Last Admin: 07/17/18 09:31 Dose: 1 mg Heparin Sodium (Porcine) (Heparin) 5,000 units SC Q8 [facility]; Protocol Last Admin: 07/17/18 05:45 Dose: 5,000 units Dexmedetomidine HCl (Precedex 400mcg/100ml) 400 mcg in 100 mls @ 3.629 mls/hr IV .Q24H PRN; Protocol PRN Reason: Agitation Last Titration: 07/17/18 10:48 Dose: 0 mcg/kg/hr, 0 mls/hr Multivitamins (Thera Tab) 1 tab PO 0800 [facility] Last Admin: 07/17/18 09:31 Dose: 1 tab Thiamine HCl (Vitamin B1 Tab) 100 mg PO DAILY [facility] Last Admin: 07/17/18 09:32 Dose: 100 mg - Labs Labs: 07/17/18 05:00 07/17/18 05:00 - Constitutional Appears: Non-toxic, No Acute Distress - Head Exam Head Exam: ATRAUMATIC, NORMAL INSPECTION, NORMOCEPHALIC - Eye Exam Eye Exam: EOMI, PERRL - ENT Exam ENT Exam: Mucous Membranes Moist - Neck Exam Neck Exam: Full ROM - Respiratory Exam Respiratory Exam: Clear to Ausculation Bilateral, NORMAL BREATHING PATTERN. absent: Rhonchi, Wheezes - Cardiovascular Exam Cardiovascular Exam: REGULAR RHYTHM, +S1, +S2 - GI/Abdominal Exam GI & Abdominal Exam: Soft, Normal Bowel Sounds. absent: Firm, Guarding, Rigid - Extremities Exam Extremities Exam: absent: Calf Tenderness, Pedal Edema - Neurological Exam Neurological Exam: Alert, Awake, CN II-XII Intact, Oriented x3 Additional comments: motor and sensory grossly intact, mild tremor noted during patient outstretched hands - Psychiatric Exam Psychiatric exam: Normal Affect, Normal Mood - Skin Skin Exam: Dry, Intact Assessment and Plan - Assessment and Plan (Free Text) Assessment: 52 year old male with past medical history of Bipolar disorder, gout and etoh abuse presenting to [facility] via ambulance for overdose on Klopin with excesive etoh intoxication with vodka. Patient admitted for alcohol and benzodiazpine withdrawal and concern for Dts. Patient placed on precedex and monitored in ICu. Patient continues to experience AMS as he is AAOx2 with poor identification of time. AMS secondary to etoh/benzodiazpine overdose - ongoing ETOH withdrawl Hypokalemia Mixed HAGMA + resolving Alkalosis - resolved Transaminitis - improving Bipolar disorder - chronic Plan: - Patient remains in ICU requiring Precedex gtt for agitation and etoh withdrawl, plan to titrate off precedex gtt as allowed - CIWA, IVG, MV, FA, Thiamine - Continue to monitor transaminitis, showing improvement - Monitor lytes and replete as necessary - Psych consulted, appreciate recommendations - GI/DVT ppx <Mali Mcconnell - Last Filed: 07/17/18 12:57> Objective - Vital Signs/Intake and Output Vital Signs (last 24 hours): Temp Pulse Resp BP Pulse Ox 97.5 F L 83 17 115/84 75 L 07/17/18 08:00 07/17/18 09:10 07/17/18 09:10 07/17/18 09:00 07/17/18 09:10 Intake and Output: 07/17/18 07/17/18 06:59 18:59 Intake Total 200 65 Balance 200 65 - Medications Medications: Current Medications Albuterol/Ipratropium (Duoneb 3 Mg/0.5 Mg (3 Ml) Ud) 3 ml IH [id number] PRN PRN Reason: Shortness of Breath Chlordiazepoxide (Librium) 10 mg PO Q6 [facility]; Protocol Last Admin: 07/17/18 05:45 Dose: 10 mg Folic Acid (Folic Acid) 1 mg PO DAILY [facility] Last Admin: 07/17/18 09:31 Dose: 1 mg Heparin Sodium (Porcine) (Heparin) 5,000 units SC Q8 [facility]; Protocol Last Admin: 07/17/18 05:45 Dose: 5,000 units Dexmedetomidine HCl (Precedex 400mcg/100ml) 400 mcg in 100 mls @ 3.629 mls/hr IV .Q24H PRN; Protocol PRN Reason: Agitation Last Titration: 07/17/18 10:48 Dose: 0 mcg/kg/hr, 0 mls/hr Multivitamins (Thera Tab) 1 tab PO 0800 [facility] Last Admin: 07/17/18 09:31 Dose: 1 tab Thiamine HCl (Vitamin B1 Tab) 100 mg PO DAILY [facility] Last Admin: 07/17/18 09:32 Dose: 100 mg - Labs Labs: 07/17/18 05:00 07/17/18 05:00 Attending/Attestation - Attestation I have personally seen and examined this patient.: Yes I have fully participated in the care of the patient.: Yes I have reviewed all pertinent clinical information, including history, physical exam and plan: Yes Notes (Text): 07/17/18 12:55 Patient was seen and examined with medical accounting clerk. 52 yo M with PMHx of Bipolar disorder, gout, and alcohol abuse who was brought in by ambulance after overdosing on Klonopin and Seroquel while drinking vodka. .Patient was agitated in ER and was started on Precedex for alcohol/benzo withdrawal and possible DTs, patient currently under MICU care for monitoring. Agitation is better but still confused.Plan to taper down Precedex today. Continue monitoring neuro check and for sign of withdrawal. Patient is able to pass urine, no need for any catheter. Psychiatry evaluation is pending.
--- NOTE | 2018-07-17 19:17 | CON ---
DATE: 07/17/2018 HISTORY OF PRESENT ILLNESS: The patient is a 52-year-old male with a history of reported bipolar disorder as well as generalized anxiety disorder and panic attacks, prior alcohol use disorder. No psychiatric hospitalizations. Currently in psychiatric treatment in [facility] with Dr. Dailey, reportedly compliant with Seroquel and Klonopin prescribed to him. No history of suicide attempts, who was brought in by ambulance after overdoing on Klonopin, after drinking excessive vodka approximately 2 days ago on 07/15/2018. He has been agitated and combative, where he was medically stabilized. Psychiatry was consulted due to concerns of overdose. I met with the patient at bedside and he is superficially cooperative with this provider. At times he seemed a bit disoriented, however, can be redirected and refocused. He is aware that he is at [facility]. He is aware of the current date, month and year. He is only superficially aware of the circumstances surrounding and leading to his presentation. The patient reports that he drank 2 days ago. His time line seems to be consistent. He had some iced tea and vodka. He had about 2 drinks that day after being sober from alcohol for 7 years prior. He said he was celebrating his girlfriend's birthday that day. At some point, he did take extra Klonopin, he could not calm down. He usually takes 2 pills in the morning and 4 pills at night. He indicates that he took extra that day. He denies that was trying to overdose or kill himself and then he reports that he blacked out. The patient does not remember most of what happened that day or his behaviors in the ER and the events subsequently on the unit. He does report depression, but mostly related to his 26-year-old daughter, who was for the first time and she was 3-1/2 months and lost a set of twins approximately 1 to 2 weeks ago. The patient becomes tearful when relaying this information, this is an appropriate reaction for the circumstance. He denies feeling hopeless, suicidal. He denies any hallucinations. He does not know the doses of his medications and at times again as noted his focus is variable. The patient although he is superficially cooperative, he does not give this provider permission to call his girlfriend to confirm circumstances, he says he wants to speak with her first. Vital signs and labs were reviewed. RELEVANT PSYCHIATRIC MEDICATIONS: Librium 10 mg every 6 hours scheduled. PSYCHIATRIC HISTORY: The patient denies any prior psychiatric admissions. Denies any history of suicide attempts, reports that he has been in treatment at the [facility] with Dr. Dailey and he is prescribed Seroquel, believes the dose is 150 mg in the morning and 400 mg at bedtime. He also gets prescribed Klonopin 2 pills in the morning and 4 pills at night, does admit that he was overusing these pills recently, and cannot recall his medication list otherwise. SOCIAL HISTORY: The patient has been with his girlfriend of 7 years and they have been living together. He has two kids it appears with another mother. There is a 14-year-old that lives with their mother and a 26-year-old daughter who recently lost a set of twins about 1 to 2 weeks ago when she happened to be . The patient denies any drug use recently, does report history of alcohol dependency and he was sober for 7 years until he decided to drink 2 days prior. He reports he only had 2 glasses of iced tea laced with vodka. IMPRESSION: Bipolar disorder by history, alcohol use disorder by history, generalized anxiety disorder and panic disorder, adjustment disorder with depression related to the loss of his twin grandchildren, rule out benzodiazepine dependency and abuse. RECOMMENDATIONS: 1. I agree with continuing Librium 10 mg every 6 hours scheduled. It is unlikely that patient has been using alcohol on a regular basis. The patient has been prescribed Klonopin regularly and admits to overusing it. 2. I will also restart Seroquel a low dose of 25 mg b.i.d. and 50 mg at bedtime as the patient has had periods of confusion and agitation on the unit. 3. The patient is not psychiatrically cleared for discharge, circumstances of the overdose still have not been confirmed and it is concerning that the patient will not permit this provider to speak with his girlfriend until he speaks with her first. The patient cannot not be discharged until he is psychiatrically cleared. Psychiatry will continue to follow up with him daily. Next followup with be by Dr. Grace, on 07/18/2018. Hopefully at that point, the patient will have spoken with his girlfriend and we will be able to get appropriate collateral information. The patient might benefit from psychiatric admission once he is medically cleared. Louie Navas MD
[2018-07-17 22:53] LABS: FOLATE 11.4 ng/mL
[2018-07-18 06:32] LABS: BASO # 0.02 K/mm3 (0.0-2.0); BASO % 0.3 % (0.0-3.0); HEMOGLOBIN 12.9 g/dL (14.0-18.0); LYMPH # 1.2 (1.2-3.4); LYMPH % 17.2 % (22.0-35.0); MEAN CORPUSCULAR HEMOGLOBIN 32.7 pg (25.0-35.0); MEAN CORPUSCULAR HGB CONC 32.7 g/dl (31.0-37.0); MONO # 0.8 (0.1-0.6); MONO % 11.2 % (1.0-6.0); RBC 3.95 10^6/uL (3.5-6.1); RED CELL DISTRIBUTION WIDTH 13.7 % (11.5-14.5); WHITE BLOOD COUNT 7.2 10^3/uL (4.5-11.0)
[2018-07-18 06:51] LABS: ALB/GLOB RATIO 1.4 (1.1-1.8); ALBUMIN 4.5 g/dL (3.0-4.8); ALT/SGPT 69 U/L (7-56); AST/SGOT 46 U/L (17-59); BLOOD UREA NITROGEN 13 mg/dL (7-21); CALCIUM 9.5 mg/dL (8.4-10.5); GFR NON-AFRICAN AMERICAN > 60
[2018-07-18] MEDS: Multivitamin Therapeutic Tab PO SCH (07:54)
--- NOTE | 2018-07-18 16:56 | CP.PCM.PN ---
<Raegan Gonzalez - Last Filed: 07/18/18 16:48> Subjective - Date & Time of Evaluation Date of Evaluation: 07/18/18 Time of Evaluation: 16:48 - Subjective Subjective: Raegan Gonzalez, PGY-1, Internal Medicine Progress Note for Dr. Oliveros Patient was seen and evaluated at bedside. Patient had no acute overnight events. Patient was AAOx3 at bedside and denied any current symptoms at this time. He denied any suicidal ideations or homicidal ideations. 12-point ROS was unremarkable except for what was mentioned above. Objective - Vital Signs/Intake and Output Vital Signs (last 24 hours): Temp Pulse Resp BP Pulse Ox 98.1 F 85 15 163/96 H 99 07/18/18 08:16 07/18/18 07:17 07/18/18 06:30 07/18/18 04:00 07/18/18 04:00 Intake and Output: 07/18/18 07/18/18 06:59 18:59 Intake Total 300 Balance 300 - Medications Medications: Current Medications Acetaminophen (Tylenol 325mg Tab) 650 mg PO Q6H PRN PRN Reason: Headache Last Admin: 07/18/18 11:06 Dose: 650 mg Albuterol/Ipratropium (Duoneb 3 Mg/0.5 Mg (3 Ml) Ud) 3 ml IH [id number] PRN PRN Reason: Shortness of Breath Chlordiazepoxide (Librium) 10 mg PO Q12 [facility]; Protocol Folic Acid (Folic Acid) 1 mg PO DAILY [facility] Last Admin: 07/18/18 11:05 Dose: 1 mg Heparin Sodium (Porcine) (Heparin) 5,000 units SC Q8 [facility]; Protocol Last Admin: 07/18/18 15:23 Dose: 5,000 units Multivitamins (Thera Tab) 1 tab PO 0800 [facility] Last Admin: 07/18/18 07:54 Dose: 1 tab Thiamine HCl (Vitamin B1 Tab) 100 mg PO DAILY [facility] Last Admin: 07/18/18 11:05 Dose: 100 mg - Labs Labs: 07/18/18 05:28 07/18/18 05:28 - Constitutional Appears: Well, Non-toxic, No Acute Distress - Head Exam Head Exam: ATRAUMATIC, NORMAL INSPECTION, NORMOCEPHALIC - Eye Exam Eye Exam: EOMI, PERRL - ENT Exam ENT Exam: Mucous Membranes Moist - Neck Exam Neck Exam: Full ROM - Respiratory Exam Respiratory Exam: Clear to Ausculation Bilateral, NORMAL BREATHING PATTERN. absent: Rales, Rhonchi, Wheezes - Cardiovascular Exam Cardiovascular Exam: REGULAR RHYTHM, RRR, +S1, +S2. absent: Clicks, Gallop, Rubs - GI/Abdominal Exam GI & Abdominal Exam: Soft, Normal Bowel Sounds. absent: Distended, Firm, Guarding, Tenderness - Extremities Exam Extremities Exam: Full ROM, Normal Capillary Refill, Normal Inspection - Neurological Exam Neurological Exam: Alert, Awake, CN II-XII Intact - Psychiatric Exam Psychiatric exam: Normal Affect, Normal Mood - Skin Skin Exam: Dry, Intact, Normal Color Assessment and Plan - Assessment and Plan (Free Text) Assessment: 52 year old male with past medical history of bipolar disorder, gout and alcohol abuse presented for overdose on Klopin with excesive alcohol use with vodka. Plan: Alcohol withdrawal -Altered mental status resolved -Elevated ALT improving. AST, ALP, Total bilirubin within normal limits -Alc level on admission: 60 -CIWA protocol. CIWA has been 0 -Off precedex drip -Reduced librium to 10 Q12 -Continue with MVI, thiamine, folic acid Benzodiazepine abuse -Counseled patient regarding dangers of benzodiazepine abuse DVT prophylaxis: heparin Patient plan discussed with Dr. Oliveros <Maggie Oliveros - Last Filed: 07/18/18 17:24> Objective - Vital Signs/Intake and Output Vital Signs (last 24 hours): Temp Pulse Resp BP Pulse Ox 98.1 F 85 15 163/96 H 99 07/18/18 08:16 07/18/18 07:17 07/18/18 06:30 07/18/18 04:00 07/18/18 04:00 Intake and Output: 07/18/18 07/18/18 06:59 18:59 Intake Total 300 Balance 300 - Medications Medications: Current Medications Acetaminophen (Tylenol 325mg Tab) 650 mg PO Q6H PRN PRN Reason: Headache Last Admin: 07/18/18 11:06 Dose: 650 mg Albuterol/Ipratropium (Duoneb 3 Mg/0.5 Mg (3 Ml) Ud) 3 ml IH [id number] PRN PRN Reason: Shortness of Breath Chlordiazepoxide (Librium) 10 mg PO Q12 [facility]; Protocol Folic Acid (Folic Acid) 1 mg PO DAILY [facility] Last Admin: 07/18/18 11:05 Dose: 1 mg Heparin Sodium (Porcine) (Heparin) 5,000 units SC Q8 [facility]; Protocol Last Admin: 07/18/18 15:23 Dose: 5,000 units Multivitamins (Thera Tab) 1 tab PO 0800 [facility] Last Admin: 07/18/18 07:54 Dose: 1 tab Thiamine HCl (Vitamin B1 Tab) 100 mg PO DAILY [facility] Last Admin: 07/18/18 11:05 Dose: 100 mg - Labs Labs: 07/18/18 05:28 07/18/18 05:28 Attending/Attestation - Attestation I have personally seen and examined this patient.: Yes I have fully participated in the care of the patient.: Yes I have reviewed all pertinent clinical information, including history, physical exam and plan: Yes Notes (Text): 07/18/18 17:20 52 year old male with past medical history of alcohol abuse and bipolar disorder who presented after overdosing on klonopin and seroquel while drinking alcohol. Patient states overdose was not intentional and he had trouble sleeping for past few days. In ER he was agitated and started on precedex for several alcohol/BZ withdrawal. He is now off precedex and on librium which we will begin to taper today. Psychiatry follow up was requested. He was counselled on risks of continued alcohol and substance abuse. Maggie Oliveros MD Hospitalist.
[2018-07-18 17:36] VITALS: RESP 20
[2018-07-19 08:03] LABS: BASO # 0.03 K/mm3 (0.0-2.0); BASO % 0.3 % (0.0-3.0); HEMOGLOBIN 12.1 g/dL (14.0-18.0); LYMPH # 1.4 (1.2-3.4); LYMPH % 14.4 % (22.0-35.0); MEAN CELL VOLUME 99.5 fl (80.0-105.0); MEAN CORPUSCULAR HGB CONC 33.2 g/dl (31.0-37.0); MEAN PLATELET VOLUME 8.9 fl (7.0-11.0); MONO # 1.3 (0.1-0.6); MONO % 13.7 % (1.0-6.0); RBC 3.67 10^6/uL (3.5-6.1); WHITE BLOOD COUNT 9.4 10^3/uL (4.5-11.0)
[2018-07-19 08:20] LABS: ALB/GLOB RATIO 1.4 (1.1-1.8); ALBUMIN 4.3 g/dL (3.0-4.8); ALT/SGPT 62 U/L (7-56); AST/SGOT 40 U/L (17-59); BLOOD UREA NITROGEN 12 mg/dL (7-21); CALCIUM 9.5 mg/dL (8.4-10.5); GFR NON-AFRICAN AMERICAN > 60
[2018-07-19] MEDS: Multivitamin Therapeutic Tab PO SCH (09:13)
--- NOTE | 2018-07-19 16:25 | CP.PCM.DIS ---
<Raegan Gonzalez - Last Filed: 07/19/18 16:10> Provider - Provider Date of Admission: 07/15/18 14:32 Attending physician: Maggie Oliveros MD Primary care physician: Michael Hyman MD Consults: 07/15/18 14:56 Consult [Physician Consult] Stat Comment: Consulting Provider: Casa Rees Consulting Physician: Casa Rees Reason for Consult: unable to place sanchez catheter 07/15/18 18:22 Nursing Referral for Wound Care Routine Comment: Physician Instructions: Reason For Exam: heel integrity 07/15/18 21:56 Social Work Referral Routine Comment: d/c plan Physician Instructions: Reason For Exam: assess 07/16/18 08:24 Psychiatry Consult Routine Comment: Consulting Provider: Louie Navas Consulting Physician: Louie Navas Reason for Consult: Patient has psych hx (Bipolar) Time Spent in preparation of Discharge (in minutes): 45 Hospital Course - Lab Results Lab Results: Micro Results 07/15/18 14:15 Blood Blood Culture - Preliminary NO GROWTH AFTER 4 DAYS 07/15/18 14:00 Blood Blood Culture - Preliminary NO GROWTH AFTER 4 DAYS 07/15/18 20:01 Naris MRSA Culture (Admit) - Final MRSA NOT DETECTED Most Recent Lab Values WBC 9.4 10^3/uL (4.5-11.0) D 07/19/18 07:50 RBC 3.67 10^6/uL (3.5-6.1) 07/19/18 07:50 Hgb 12.1 g/dL (14.0-18.0) L 07/19/18 07:50 Hct 36.5 % (42.0-52.0) L 07/19/18 07:50 MCV 99.5 fl (80.0-105.0) 07/19/18 07:50 MCH 33.0 pg (25.0-35.0) 07/19/18 07:50 MCHC 33.2 g/dl (31.0-37.0) 07/19/18 07:50 RDW 14.0 % (11.5-14.5) 07/19/18 07:50 Plt Count 213 10^3/uL (120.0-450.0) 07/19/18 07:50 MPV 8.9 fl (7.0-11.0) 07/19/18 07:50 Neut % (Auto) 71.6 % (50.0-68.0) H 07/19/18 07:50 Lymph % (Auto) 14.4 % (22.0-35.0) L 07/19/18 07:50 Clare % (Auto) 13.7 % (1.0-6.0) H 07/19/18 07:50 Eos % (Auto) 0.0 % (1.5-5.0) L 07/19/18 07:50 Baso % (Auto) 0.3 % (0.0-3.0) 07/19/18 07:50 Lymph # (Auto) 1.4 (1.2-3.4) 07/19/18 07:50 Clare # (Auto) 1.3 (0.1-0.6) H 07/19/18 07:50 Eos # (Auto) 0.0 (0.0-0.7) 07/19/18 07:50 Baso # (Auto) 0.03 K/mm3 (0.0-2.0) 07/19/18 07:50 Absolute Neuts (auto) 6.76 (1.4-6.5) H 07/19/18 07:50 pO2 193 mm/Hg (30-55) H 07/15/18 19:58 VBG pH 7.45 (7.32-7.43) H 07/15/18 19:58 VBG pCO2 28.0 (40-60) L 07/15/18 19:58 VBG HCO3 19.5 mmol/l (21-28) L 07/15/18 19:58 VBG Total CO2 20.4 mmol.L (22-28) L 07/15/18 19:58 VBG O2 Sat (Calc) 99.3 % (40-65) H 07/15/18 19:58 VBG Base Excess -3.2 mmol/L (0.0-2.0) L 07/15/18 19:58 VBG Potassium 3.5 mmol/L (3.6-5.2) L 07/15/18 19:58 Sodium 144.0 mmol/L (132-148) 07/15/18 19:58 Chloride 116.0 mmol/L (98-107) H 07/15/18 19:58 Glucose 116 mg/dl (75-110) H 07/15/18 19:58 Lactate 1.9 mmol/L (0.7-2.1) 07/15/18 19:58 FiO2 21.0 % 07/15/18 19:58 Crit Value Called To Brenda salinas 07/15/18 19:58 Crit Value Called By Dariel 07/15/18 19:58 Blood Gas Notified Time 202507/15/18 19:58 Sodium 135 mmol/L (132-148) 07/19/18 07:50 Potassium 3.7 mmol/L (3.6-5.0) 07/19/18 07:50 Chloride 102 mmol/L (98-107) 07/19/18 07:50 Carbon Dioxide 22 mmol/L (21-33) 07/19/18 07:50 Anion Gap 15 (10-20) 07/19/18 07:50 BUN 12 mg/dL (7-21) 07/19/18 07:50 Creatinine 0.9 mg/dl (0.8-1.5) 07/19/18 07:50 Est GFR ( Amer) > 60 07/19/18 07:50 Est GFR (Non-Af Amer) > 60 07/19/18 07:50 Random Glucose 101 mg/dL (70-110) 07/19/18 07:50 Serum Osmolality 313 mosm/kg (272-300) H 07/15/18 12:00 Calcium 9.5 mg/dL (8.4-10.5) 07/19/18 07:50 Phosphorus 4.3 mg/dL (2.5-4.5) 07/16/18 05:00 Magnesium 2.3 mg/dL (1.7-2.2) H 07/16/18 05:00 Total Bilirubin 1.0 mg/dL (0.2-1.3) 07/19/18 07:50 AST 40 U/L (17-59) 07/19/18 07:50 ALT 62 U/L (7-56) H 07/19/18 07:50 Alkaline Phosphatase 76 U/L (38-126) 07/19/18 07:50 Total Protein 7.5 g/dL (5.8-8.3) 07/19/18 07:50 Albumin 4.3 g/dL (3.0-4.8) 07/19/18 07:50 Globulin 3.1 gm/dL 07/19/18 07:50 Albumin/Globulin Ratio 1.4 (1.1-1.8) 07/19/18 07:50 Vitamin B12 415 pg/mL (239-931) 07/17/18 13:20 Folate 11.4 ng/mL 07/17/18 13:20 Procalcitonin < 0.05 NG/ML (0.19-0.49) L 07/15/18 12:00 Venous Blood Potassium 3.5 mmol/L (3.6-5.2) L 07/15/18 19:58 Salicylates < 1 mg/dL (2.0-20.0) L 07/15/18 10:54 Urine Opiates Screen Negative (NEGATIVE) 07/16/18 08:40 Urine Methadone Screen Negative (NEGATIVE) 07/16/18 08:40 Acetaminophen < 10.0 ug/ml (10.0-20.0) L 07/15/18 10:54 Ur Barbiturates Screen Negative (NEGATIVE) 07/16/18 08:40 Ur Phencyclidine Scrn Negative (NEGATIVE) 07/16/18 08:40 Ur Amphetamines Screen Negative (NEGATIVE) 07/16/18 08:40 U Benzodiazepines Scrn Positive (NEGATIVE) H 07/16/18 08:40 U Oth Cocaine Metabols Negative (NEGATIVE) 07/16/18 08:40 U Cannabinoids Screen Negative (NEGATIVE) 07/16/18 08:40 Alcohol, Quantitative 60 mg/dL (0-10) H 07/15/18 10:54 - Hospital Course Hospital Course: Raegan Gonzalez, PGY-1, Internal Medicine Discharge Summary for Dr. Oliveros 52 year old male with past medical history of bipolar disorder, gout, history of alcohol abuse presented after overdosing on Klonipin 0.5 mg x2 and seroquel 140 mg x2 as well as drinking excessive alcohol. Patient was agitated on admission, suffering from delirium tremens and was agitated and uncooperative despite multiple doses of ativan. CIWA was initially 20s-40s. As a result, precedex was started on admission. UDS on admission was positive for benzodiazepines and alcohol level was 60. Patient additionally had high anion gap metabolic acidosis on admission likely 2/2 to alcohol use and lactic acidosis. Procalcitonin was less than 0.05. Patient had elevated ALT on admission, which trended down throughout this admission. In ICU, precedex was tapered. Precedex was unable to be tapered off initially due to severe agitation and was emotional. On 07/17, patient was tapered off precedex successfully. Since 07/17, patient's mental status significantly improved and has been AAOx3. His CIWA has been less than 2 since off of precedex. Transaminases improved. HAGMA resolved. Patient was started on librium at the time and librium has been tapered down successfully. Patient was on multivitamin, thiamine, and folic acid for nutrient supplementation. Patient had temperature of 100.1 prior to discharge and was given tylenol prior to discharge. Patient reported that he was starting to have right knee pain possible secondary to early gout flare and was given tylenol with resolution of pain. Patient was found to be stable and ready for discharge. Patient was stable and ready for discharge. Patient was told to follow up with PCP within 3-5 days. Patient was told to take all home medications as prescribed. After discussions with psychiatry regarding home psych medications, patient signed disclaimer form regarding not hurting himself and he reported that he did not have any suicidal ideations at this time. In addition, psychiatry reported that he can resume his home psych medication regimen. Patient was told to return to the emergency department if he had any new or concerning symptoms. This is a brief summary of the events that occurred during this hospital visit. For more information, please refer to hospital documentation. Discharge diagnoses Alcohol withdrawal Benzodiazepine abuse - Date & Time of H&P Date of H&P: 07/15/18 Time of H&P: 14:51 Discharge Exam - Head Exam Head Exam: ATRAUMATIC, NORMAL INSPECTION, NORMOCEPHALIC - Eye Exam Eye Exam: EOMI, PERRL - ENT Exam ENT Exam: Mucous Membranes Moist, Normal Exam - Respiratory Exam Respiratory Exam: Clear to PA & Lateral, NORMAL BREATHING PATTERN. absent: Rales, Rhonchi, Wheezes - Cardiovascular Exam Cardiovascular Exam: REGULAR RHYTHM, RRR, +S1, +S2. absent: Clicks, Gallop, Rubs - GI/Abdominal Exam GI & Abdominal Exam: Normal Bowel Sounds, Soft. absent: Distended, Firm, Guarding, Tenderness - Extremities Exam Extremities exam: full ROM, normal capillary refill, normal inspection Additional comments: mild swelling of right knee - Neurological Exam Neurological exam: Alert, CN II-XII Intact, Normal Gait, Oriented x3 - Psychiatric Exam Psychiatric exam: Normal Affect, Normal Mood - Skin Skin Exam: Dry, Intact, Normal Color Discharge Plan - Discharge Medications Prescriptions: Folic Acid 1 mg PO DAILY 30 Days #30 tab Multivitamin Therapeutic Tab [Thera Tab] 1 tab PO 0800 30 Days #30 tab Thiamine [Vitamin B1 Tab] 100 mg PO DAILY 30 Days #30 tab - Follow Up Plan Condition: CRITICAL Disposition: HOME/ ROUTINE Additional Instructions: Please follow up with your primary care doctor within 3-5 days. Please take all medications as prescribed. Please abstain from alcohol use. Please return to the emergency department if you have any new or concerning symptoms. Referrals: Michael Hyman MD [Primary Care Provider] - <Maggie Oliveros - Last Filed: 07/19/18 16:51> Provider - Provider Date of Admission: 07/15/18 14:32 Attending physician: Maggie Oliveros MD Primary care physician: Michael Hyman MD Consults: 07/15/18 14:56 Consult [Physician Consult] Stat Comment: Consulting Provider: Casa Rees Consulting Physician: Casa Rees Reason for Consult: unable to place sanchez catheter 07/15/18 18:22 Nursing Referral for Wound Care Routine Comment: Physician Instructions: Reason For Exam: heel integrity 07/15/18 21:56 Social Work Referral Routine Comment: d/c plan Physician Instructions: Reason For Exam: assess 07/16/18 08:24 Psychiatry Consult Routine Comment: Consulting Provider: Louie Navas Consulting Physician: Louie Navas Reason for Consult: Patient has psych hx (Bipolar) Hospital Course - Lab Results Lab Results: Micro Results 07/15/18 14:15 Blood Blood Culture - Preliminary NO GROWTH AFTER 4 DAYS 07/15/18 14:00 Blood Blood Culture - Preliminary NO GROWTH AFTER 4 DAYS 07/15/18 20:01 Naris MRSA Culture (Admit) - Final MRSA NOT DETECTED Most Recent Lab Values WBC 9.4 10^3/uL (4.5-11.0) D 07/19/18 07:50 RBC 3.67 10^6/uL (3.5-6.1) 07/19/18 07:50 Hgb 12.1 g/dL (14.0-18.0) L 07/19/18 07:50 Hct 36.5 % (42.0-52.0) L 07/19/18 07:50 MCV 99.5 fl (80.0-105.0) 07/19/18 07:50 MCH 33.0 pg (25.0-35.0) 07/19/18 07:50 MCHC 33.2 g/dl (31.0-37.0) 07/19/18 07:50 RDW 14.0 % (11.5-14.5) 07/19/18 07:50 Plt Count 213 10^3/uL (120.0-450.0) 07/19/18 07:50 MPV 8.9 fl (7.0-11.0) 07/19/18 07:50 Neut % (Auto) 71.6 % (50.0-68.0) H 07/19/18 07:50 Lymph % (Auto) 14.4 % (22.0-35.0) L 07/19/18 07:50 Clare % (Auto) 13.7 % (1.0-6.0) H 07/19/18 07:50 Eos % (Auto) 0.0 % (1.5-5.0) L 07/19/18 07:50 Baso % (Auto) 0.3 % (0.0-3.0) 07/19/18 07:50 Lymph # (Auto) 1.4 (1.2-3.4) 07/19/18 07:50 Clare # (Auto) 1.3 (0.1-0.6) H 07/19/18 07:50 Eos # (Auto) 0.0 (0.0-0.7) 07/19/18 07:50 Baso # (Auto) 0.03 K/mm3 (0.0-2.0) 07/19/18 07:50 Absolute Neuts (auto) 6.76 (1.4-6.5) H 07/19/18 07:50 pO2 193 mm/Hg (30-55) H 07/15/18 19:58 VBG pH 7.45 (7.32-7.43) H 07/15/18 19:58 VBG pCO2 28.0 (40-60) L 07/15/18 19:58 VBG HCO3 19.5 mmol/l (21-28) L 07/15/18 19:58 VBG Total CO2 20.4 mmol.L (22-28) L 07/15/18 19:58 VBG O2 Sat (Calc) 99.3 % (40-65) H 07/15/18 19:58 VBG Base Excess -3.2 mmol/L (0.0-2.0) L 07/15/18 19:58 VBG Potassium 3.5 mmol/L (3.6-5.2) L 07/15/18 19:58 Sodium 144.0 mmol/L (132-148) 07/15/18 19:58 Chloride 116.0 mmol/L (98-107) H 07/15/18 19:58 Glucose 116 mg/dl (75-110) H 07/15/18 19:58 Lactate 1.9 mmol/L (0.7-2.1) 07/15/18 19:58 FiO2 21.0 % 07/15/18 19:58 Crit Value Called To Brenda salinas 07/15/18 19:58 Crit Value Called By Dariel 07/15/18 19:58 Blood Gas Notified Time 202507/15/18 19:58 Sodium 135 mmol/L (132-148) 07/19/18 07:50 Potassium 3.7 mmol/L (3.6-5.0) 07/19/18 07:50 Chloride 102 mmol/L (98-107) 07/19/18 07:50 Carbon Dioxide 22 mmol/L (21-33) 07/19/18 07:50 Anion Gap 15 (10-20) 07/19/18 07:50 BUN 12 mg/dL (7-21) 07/19/18 07:50 Creatinine 0.9 mg/dl (0.8-1.5) 07/19/18 07:50 Est GFR ( Amer) > 60 07/19/18 07:50 Est GFR (Non-Af Amer) > 60 07/19/18 07:50 POC Glucose (mg/dL) 124 mg/dL (65-110) H 07/19/18 16:26 Random Glucose 101 mg/dL (70-110) 07/19/18 07:50 Serum Osmolality 313 mosm/kg (272-300) H 07/15/18 12:00 Calcium 9.5 mg/dL (8.4-10.5) 07/19/18 07:50 Phosphorus 4.3 mg/dL (2.5-4.5) 07/16/18 05:00 Magnesium 2.3 mg/dL (1.7-2.2) H 07/16/18 05:00 Total Bilirubin 1.0 mg/dL (0.2-1.3) 07/19/18 07:50 AST 40 U/L (17-59) 07/19/18 07:50 ALT 62 U/L (7-56) H 07/19/18 07:50 Alkaline Phosphatase 76 U/L (38-126) 07/19/18 07:50 Total Protein 7.5 g/dL (5.8-8.3) 07/19/18 07:50 Albumin 4.3 g/dL (3.0-4.8) 07/19/18 07:50 Globulin 3.1 gm/dL 07/19/18 07:50 Albumin/Globulin Ratio 1.4 (1.1-1.8) 07/19/18 07:50 Vitamin B12 415 pg/mL (239-931) 07/17/18 13:20 Folate 11.4 ng/mL 07/17/18 13:20 Procalcitonin < 0.05 NG/ML (0.19-0.49) L 07/15/18 12:00 Venous Blood Potassium 3.5 mmol/L (3.6-5.2) L 07/15/18 19:58 Salicylates < 1 mg/dL (2.0-20.0) L 07/15/18 10:54 Urine Opiates Screen Negative (NEGATIVE) 07/16/18 08:40 Urine Methadone Screen Negative (NEGATIVE) 07/16/18 08:40 Acetaminophen < 10.0 ug/ml (10.0-20.0) L 07/15/18 10:54 Ur Barbiturates Screen Negative (NEGATIVE) 07/16/18 08:40 Ur Phencyclidine Scrn Negative (NEGATIVE) 07/16/18 08:40 Ur Amphetamines Screen Negative (NEGATIVE) 07/16/18 08:40 U Benzodiazepines Scrn Positive (NEGATIVE) H 07/16/18 08:40 U Oth Cocaine Metabols Negative (NEGATIVE) 07/16/18 08:40 U Cannabinoids Screen Negative (NEGATIVE) 07/16/18 08:40 Alcohol, Quantitative 60 mg/dL (0-10) H 07/15/18 10:54 Attending/Attestation - Attestation I have personally seen and examined this patient.: Yes I have fully participated in the care of the patient.: Yes I have reviewed all pertinent clinical information, including history, physical exam and plan: Yes Notes (Text): 07/19/18 16:44 52 year old male with past medical history of alcohol abuse and bipolar disorder who presented after overdosing on klonopin and seroquel while drinking alcohol. Patient stated overdose was not intentional and he had trouble sleeping for past few days. In ER he was agitated and started on precedex for several alcohol/BZ withdrawal. He was tapered off precedex and started started on librium which was also tapered. Today he was seen by psychiatrist who cleared patient for discharge. Patient denies suicidal ideation or intent to harm himself. He was counselled on taking prescriptions only as prescribed by his pmd and psychiatrist and not mixing with alcohol. Patient is discharged home to follow up with pmd. Follow up with psychiatrist. Counselled on alcohol abstinence. Maggie Oliveros MD Hospitalist.
--- NOTE | 2018-07-19 20:43 | PN ---
DATE: 07/19/2018 SUBJECTIVE: The patient is a 52-year-old male with reported history of bipolar disorder and alcohol use disorder. The patient was admitted on the medical side status post alcohol intoxication and patient took extra pills of Klonopin. Psych consult was called for evaluation of possible suicidal attempt. The patient was seen and examined by Dr. Navas over the weekend. This telegraphic typewriter installer is taking over. This telegraphic typewriter installer reviewed notes by Dr. Navas, which indicated the patient took extra dose of Klonopin, because he was not able to calm down. The patient denied that he was trying to overdose or to kill himself, but the patient blacked out. When the patient's daughter lost her about 1-2 weeks ago, the patient was depressed. The patient was seen and examined today. The patient presented to be alert and oriented, pleasant and cooperative. The patient does not remember much about the circumstances of his admission to the medical side. The patient adamantly denied that he was feeling depressed, but being "sentimental" about losing his grand kids. The patient denied that he wanted to kill himself. Denied presently being depressed. The patient denied hearing voices, denied seeing things. The patient reported that he is scheduled for inpatient rehab and he is willing to go there. The patient reports that meanwhile, he will stay in his brother's house and he will go to inpatient rehab on . OBJECTIVE: VITAL SIGNS: Reviewed. Temperature 98.5, pulse 77, blood pressure 151/99, respiration 20 and saturation is 97%. MEDICATIONS: Reviewed. The patient is on Tylenol, DuoNeb, Librium which needs to be tapered down, folic acid, heparin, multivitamins and thiamine. LABORATORY DATA: Reviewed. Most recent was from today. Chemistry, reviewed. Toxicology, reviewed. Benzodiazepines were positive and alcohol was 60 at the time of admission. Microbiology reviewed negative for any infection. MENTAL STATUS EXAM: The patient presented to be alert and oriented, pleasant, cooperative, socially appropriate. Mood described as being "sentimental." Affect was tearful especially when he was talking about his daughter's miscarriage. Thought process coherent and goal-directed. Thought content, the patient denied visual, auditory, tactile hallucinations. Denied paranoid ideation. The patient denied thoughts of harming himself or others, denied intent or plan. The patient reported that he has good appetite and sleep. IMPRESSION: As per history, bipolar disorder, but the patient never been admitted to the psychiatric inpatient unit. The patient denied history of suicidal attempts. The patient has history of alcohol use disorder. PLAN: The patient is willing to go to inpatient rehab. The patient reported that he is scheduled for a transfer on . The patient wants to be discharged today in order to do his laundry and take a shower. The patient reports that he will stay with his brother. The patient contracted for safety. The patient presented with no imminent danger to self or others. As per collateral information from the nursing staff, the patient is calm, cooperative, socially appropriate. No behavioral issues. Discussed with . This telegraphic typewriter installer will sign off. Should you have any questions, give me a call back Carole Grace MD MTDTarun
[2018-07-20 07:02] LABS: BASO # 0.03 K/mm3 (0.0-2.0); BASO % 0.2 % (0.0-3.0); HEMOGLOBIN 12.3 g/dL (14.0-18.0); LYMPH # 1.2 (1.2-3.4); MEAN CELL VOLUME 97.6 fl (80.0-105.0); MEAN CORPUSCULAR HGB CONC 33.8 g/dl (31.0-37.0); MEAN PLATELET VOLUME 9.2 fl (7.0-11.0); MONO % 16.2 % (1.0-6.0); RBC 3.73 10^6/uL (3.5-6.1); RED CELL DISTRIBUTION WIDTH 13.9 % (11.5-14.5); WHITE BLOOD COUNT 12.4 10^3/uL (4.5-11.0)
[2018-07-20 07:42] LABS: ALB/GLOB RATIO 1.3 (1.1-1.8); ALBUMIN 4.4 g/dL (3.0-4.8); ALT/SGPT 49 U/L (7-56); AST/SGOT 34 U/L (17-59); BLOOD UREA NITROGEN 9 mg/dL (7-21); CALCIUM 9.8 mg/dL (8.4-10.5); GFR NON-AFRICAN AMERICAN > 60
[2018-07-20] MEDS: Multivitamin Therapeutic Tab PO SCH (08:28)
--- NOTE | 2018-07-20 10:53 | RAD ---
Date of service: 07/20/2018 PROCEDURE: Right Knee Radiographs. HISTORY: knee pain COMPARISON: None. TECHNIQUE: 2 views obtained. FINDINGS: BONES: Normal. No fracture. JOINTS: Normal. No osteoarthritis. JOINT EFFUSION: Moderate joint effusion OTHER FINDINGS: None. IMPRESSION: Moderate joint effusion. No evidence of fracture
--- NOTE | 2018-07-20 10:54 | RAD ---
Date of service: 07/20/2018 HISTORY: rule out pneumonia COMPARISON: 07/15/2018 TECHNIQUE: 1 view obtained. FINDINGS: LUNGS: No active pulmonary disease. PLEURA: No significant pleural effusion identified, no pneumothorax apparent. CARDIOVASCULAR: No aortic atherosclerotic calcification present. Normal cardiac size. No pulmonary vascular congestion. OSSEOUS STRUCTURES: No significant abnormalities. VISUALIZED UPPER ABDOMEN: Normal. OTHER FINDINGS: None. IMPRESSION: No active disease.
--- NOTE | 2018-07-20 14:13 | CP.PCM.PN ---
<Raegan Gonzalez - Last Filed: 07/20/18 14:08> Subjective - Date & Time of Evaluation Date of Evaluation: 07/20/18 Time of Evaluation: 14:08 - Subjective Subjective: Raegan Gonzalez, PGY-1, Internal Medicine Progress Note for Dr. Oliveros Patient was seen and evaluated at bedside. Patient had no acute overnight events. Patient was not discharged yesterday as patient had severe right knee pain and swelling as well as elevated temperature. Patient had fever this morning at 101. Patient continues to report worsening of right knee pain. 12- point ROS was unremarkable except for what was mentioned above. Objective - Vital Signs/Intake and Output Vital Signs (last 24 hours): Temp Pulse Resp BP Pulse Ox 99.0 F 104 H 20 117/69 95 07/20/18 11:22 07/20/18 06:00 07/20/18 06:00 07/20/18 06:00 07/19/18 16:57 Intake and Output: 07/20/18 07/20/18 06:59 18:59 Intake Total 120 Output Total 1 Balance 119 - Medications Medications: Current Medications Acetaminophen (Tylenol 325mg Tab) 650 mg PO Q6H PRN PRN Reason: Headache Last Admin: 07/20/18 10:22 Dose: 650 mg Acetaminophen (Tylenol 325mg Tab) 650 mg PO Q6H PRN PRN Reason: Fever >100.4 F Last Admin: 07/19/18 16:27 Dose: 650 mg Albuterol/Ipratropium (Duoneb 3 Mg/0.5 Mg (3 Ml) Ud) 3 ml IH [id number] PRN PRN Reason: Shortness of Breath Chlordiazepoxide (Librium) 10 mg PO Q12 [facility]; Protocol Last Admin: 07/20/18 10:21 Dose: 10 mg Folic Acid (Folic Acid) 1 mg PO DAILY [facility] Last Admin: 07/20/18 10:22 Dose: 1 mg Heparin Sodium (Porcine) (Heparin) 5,000 units SC Q8 [facility]; Protocol Last Admin: 07/20/18 06:29 Dose: 5,000 units Multivitamins (Thera Tab) 1 tab PO 0800 [facility] Last Admin: 07/20/18 08:28 Dose: 1 tab Thiamine HCl (Vitamin B1 Tab) 100 mg PO DAILY [facility] Last Admin: 07/20/18 10:22 Dose: 100 mg - Labs Labs: 07/20/18 06:30 07/20/18 06:30 - Constitutional Appears: Well, Non-toxic, No Acute Distress - Head Exam Head Exam: ATRAUMATIC, NORMAL INSPECTION, NORMOCEPHALIC - Eye Exam Eye Exam: EOMI, PERRL - ENT Exam ENT Exam: Mucous Membranes Moist - Neck Exam Neck Exam: Full ROM - Respiratory Exam Respiratory Exam: Clear to Ausculation Bilateral, NORMAL BREATHING PATTERN. absent: Rales, Rhonchi, Wheezes - Cardiovascular Exam Cardiovascular Exam: REGULAR RHYTHM, RRR, +S1, +S2. absent: Clicks, Gallop, Rubs - GI/Abdominal Exam GI & Abdominal Exam: Soft, Normal Bowel Sounds. absent: Distended, Firm, Guarding, Tenderness - Extremities Exam Extremities Exam: Full ROM, Normal Capillary Refill, Normal Inspection, Right Kn ee Swelling, Warmth, Tenderness - Neurological Exam Neurological Exam: Alert, Awake, CN II-XII Intact - Psychiatric Exam Psychiatric exam: Normal Affect, Normal Mood - Skin Skin Exam: Dry, Intact, Normal Color Assessment and Plan - Assessment and Plan (Free Text) Assessment: 52 year old male with past medical history of bipolar disorder, gout and alcohol abuse presented for overdose on Klopin with excesive alcohol use with vodka. Patient now has right knee swelling and edema likely 2/2 to gout Plan: Right knee swelling 2/2 to likely gout -Knee X ray of right: moderate joint effusion. no fracture -Started indomethacin 25 mg TID -Orthopedic surgery, Dr. Waite, consulted for aspiration of joint fluid SIRS with no identifiable source -CXR: no active disease -Ordered UA, blood cultures, urine cultures -No antibiotics at this time as fever the morning of 07/20 could be due to inflammation from gout Alcohol withdrawal -Altered mental status resolved -AST, ALT, ALP within normal limits. Total bilirubin elevated -Alc level on admission: 60 -CIWA protocol. CIWA has been 0 -Off precedex drip -Reduced librium to 5 Q12 -Continue with MVI, thiamine, folic acid Benzodiazepine abuse -Counseled patient regarding dangers of benzodiazepine abuse Bipolar disorder -Will follow recommendations as per psychiatry DVT prophylaxis: heparin Patient plan discussed with Dr. Oliveros <Maggie Oliveros - Last Filed: 07/20/18 15:12> Objective - Vital Signs/Intake and Output Vital Signs (last 24 hours): Temp Pulse Resp BP Pulse Ox 99.0 F 104 H 20 117/69 95 07/20/18 11:22 07/20/18 06:00 07/20/18 06:00 07/20/18 06:00 07/19/18 16:57 Intake and Output: 07/20/18 07/20/18 06:59 18:59 Intake Total 120 Output Total 1 Balance 119 - Medications Medications: Current Medications Acetaminophen (Tylenol 325mg Tab) 650 mg PO Q6H PRN PRN Reason: Headache Last Admin: 07/20/18 10:22 Dose: 650 mg Acetaminophen (Tylenol 325mg Tab) 650 mg PO Q6H PRN PRN Reason: Fever >100.4 F Last Admin: 07/19/18 16:27 Dose: 650 mg Albuterol/Ipratropium (Duoneb 3 Mg/0.5 Mg (3 Ml) Ud) 3 ml IH [id number] PRN PRN Reason: Shortness of Breath Chlordiazepoxide (Librium) 5 mg PO Q12 [facility]; Protocol Folic Acid (Folic Acid) 1 mg PO DAILY [facility] Last Admin: 07/20/18 10:22 Dose: 1 mg Heparin Sodium (Porcine) (Heparin) 5,000 units SC Q8 [facility]; Protocol Last Admin: 07/20/18 14:37 Dose: 5,000 units Indomethacin (Indocin) 25 mg PO TID [facility] Multivitamins (Thera Tab) 1 tab PO 0800 [facility] Last Admin: 07/20/18 08:28 Dose: 1 tab Thiamine HCl (Vitamin B1 Tab) 100 mg PO DAILY [facility] Last Admin: 07/20/18 10:22 Dose: 100 mg - Labs Labs: 07/20/18 06:30 07/20/18 06:30 Attending/Attestation - Attestation I have personally seen and examined this patient.: Yes I have fully participated in the care of the patient.: Yes I have reviewed all pertinent clinical information, including history, physical exam and plan: Yes Notes (Text): 07/20/18 15:07 52 year old male with past medical history of alcohol abuse and bipolar disorder who presented after overdosing on klonopin and seroquel while drinking alcohol. Patient stated overdose was not intentional and he had trouble sleeping for past few days. In ER he was agitated and started on precedex for several alcohol/BZ withdrawal. He was tapered off precedex and started started on librium which is being tapered. He was seen by psychiatrist and cleared patient for discharge yesterday. Patient denies suicidal ideation or intent to harm himself. He was counselled on taking prescriptions only as prescribed by his pmd and psychiatrist and not mixing with alcohol. Patient however was not discharged yesterday due to increase right knee pain and swelling. This morning he has fever of 101 and leukocytosis 12.2. Knee xray shows moderate joint effusion. Will start indomethacin and request ortho evaluation. Septic workup also ordered. Maggie Oliveros MD Hospitalist.
[2018-07-20 15:22] LABS: URINE BILIRUBIN NEGATIVE (NEGATIVE); URINE BLOOD TRACE-INTACT (NEGATIVE); URINE GLUCOSE (UA) NEGATIVE (NEGATIVE); URINE LEUKOCYTE ESTERASE SMALL Leu/uL (NEGATIVE); URINE PROTEIN NEGATIVE mg/dL (<30 mg/dL); URINE UROBILINOGEN 0.2 E.U./dL (<1 E.U./dL)
[2018-07-20 15:23] LABS: URINE APPEARANCE SL CLOUDY (CLEAR); URINE COLOR YELLOW (YELLOW)
[2018-07-20 15:27] LABS: URINE RBC 0 - 2 /hpf (0-2)
[2018-07-20] MEDS ORDERED: Melatonin 3 MG Tab PO SCH (22:00)
[2018-07-21 07:04] LABS: BASO # 0.02 K/mm3 (0.0-2.0); BASO % 0.3 % (0.0-3.0); HEMOGLOBIN 10.8 g/dL (14.0-18.0); LYMPH # 1.1 (1.2-3.4); LYMPH % 13.9 % (22.0-35.0); MEAN CELL VOLUME 96.4 fl (80.0-105.0); MEAN CORPUSCULAR HEMOGLOBIN 32.7 pg (25.0-35.0); MEAN PLATELET VOLUME 8.9 fl (7.0-11.0); MONO # 1.7 (0.1-0.6); MONO % 21.2 % (1.0-6.0); PLATELET COUNT 236 10^3/uL (120.0-450.0); RED CELL DISTRIBUTION WIDTH 13.7 % (11.5-14.5); WHITE BLOOD COUNT 7.9 10^3/uL (4.5-11.0)
[2018-07-21 07:29] LABS: ALB/GLOB RATIO 1.3 (1.1-1.8); ALBUMIN 4.2 g/dL (3.0-4.8); ALT/SGPT 38 U/L (7-56); AST/SGOT 26 U/L (17-59); BLOOD UREA NITROGEN 11 mg/dL (7-21); CALCIUM 9.4 mg/dL (8.4-10.5); GFR NON-AFRICAN AMERICAN > 60
[2018-07-21 07:52] LABS: BAND 2 % (0-2); BASOPHIL 1 % (0.0-1.0); LYMPHOCYTE 21 % (22.0-35.0); MONOCYTE 8 % (1.0-6.0); NEUTROPHIL 68 % (50.0-70.0)
[2018-07-21 07:53] LABS: PLATELET ESTIMATE NORMAL (NORMAL)
[2018-07-21 08:53] VITALS: BP 120/66; PULSE 79; TEMP 98.8; O2SAT 97
[2018-07-21] MEDS: Multivitamin Therapeutic Tab PO SCH (09:23)
--- NOTE | 2018-07-21 10:49 | CP.PCM.CON ---
History of Present Illness - History of Present Illness History of Present Illness: Orthopedic Surgery Consult: Dr. Waite 52M patient with PMHx of alcohol abuse and bipolar disorder seen and examined for R knee pain. Patient states that his R knee pain started while he was in the hospital and that same day he had a fever and his WBC spiked. He admits to a longstanding history of gout and takes Allopurinol/Indocin at home. While he was in the hospital he stopped his gout medications and he began to have R knee pa in. He states that the medicine team gave him medication and he feels 80% better today. He admits to having a similar situation like this happen in the past.Patient denies nausea/vomiting/fever/shortness of breath/chest pain. PMHx: Alcohol abuse, bipolar disorder PSHx: R foot surgery ALL: NKDA Review of Systems - Constitutional Constitutional: As Per HPI Past Patient History - Infectious Disease Hx of Infectious Diseases: None - Tetanus Immunizations Tetanus Immunization: Unknown - Past Social History Smoking Status: Former Smoker - CARDIAC Hx Cardiac Disorders: No - PULMONARY Hx Respiratory Disorders: No - NEUROLOGICAL Hx Neurological Disorder: No - HEENT Hx HEENT Problems: No - RENAL Hx Chronic Kidney Disease: No - ENDOCRINE/METABOLIC Hx Endocrine Disorders: No - HEMATOLOGICAL/ONCOLOGICAL Hx Blood Disorders: Yes Hx Anemia: Yes - INTEGUMENTARY Hx Dermatological Problems: No - MUSCULOSKELETAL/RHEUMATOLOGICAL Hx Musculoskeletal Disorders: Yes Hx Gout: Yes - GASTROINTESTINAL Hx Gastrointestinal Disorders: Yes Hx Gall Bladder Disease: Yes - GENITOURINARY/GYNECOLOGICAL Hx Genitourinary Disorders: No - PSYCHIATRIC Hx Psychophysiologic Disorder: Yes Hx Anxiety: Yes Hx Bipolar Disorder: Yes Hx Depression: No Hx Emotional Abuse: No Hx Physical Abuse: No Hx Substance Use: No - SURGICAL HISTORY Hx Orthopedic Surgery: Yes (rt foot) Other/Comment: deviated septum repair. - ANESTHESIA Hx Anesthesia: Yes Hx Anesthesia Reactions: No Hx Malignant Hyperthermia: No Meds Home Medications: Home Medication List Medication Instructions Recorded Confirmed Type Folic Acid 1 mg PO DAILY 30 Days #30 tab 07/18/18 Rx Multivitamin Therapeutic Tab 1 tab PO 0800 30 Days #30 tab 07/18/18 Rx [Thera Tab] Thiamine [Vitamin B1 Tab] 100 mg PO DAILY 30 Days #30 tab 07/18/18 Rx Allergies/Adverse Reactions: Allergies Allergy/AdvReac Type Severity Reaction Status Date / Time No Known Allergies Allergy Verified 08/24/16 10:14 - Medications Medications: Current Medications Acetaminophen (Tylenol 325mg Tab) 650 mg PO Q6H PRN PRN Reason: Headache Last Admin: 07/21/18 09:26 Dose: 650 mg Acetaminophen (Tylenol 325mg Tab) 650 mg PO Q6H PRN PRN Reason: Fever >100.4 F Last Admin: 07/19/18 16:27 Dose: 650 mg Albuterol/Ipratropium (Duoneb 3 Mg/0.5 Mg (3 Ml) Ud) 3 ml IH [id number] PRN PRN Reason: Shortness of Breath Chlordiazepoxide (Librium) 5 mg PO Q12 [facility]; Protocol Last Admin: 07/21/18 09:24 Dose: 5 mg Folic Acid (Folic Acid) 1 mg PO DAILY [facility] Last Admin: 07/21/18 09:23 Dose: 1 mg Heparin Sodium (Porcine) (Heparin) 5,000 units SC Q8 [facility]; Protocol Last Admin: 07/21/18 07:29 Dose: Not Given Indomethacin (Indocin) 25 mg PO TID [facility] Last Admin: 07/21/18 09:24 Dose: 25 mg Melatonin (Melatonin) 3 mg PO HS [facility] Last Admin: 07/20/18 21:49 Dose: 3 mg Multivitamins (Thera Tab) 1 tab PO 0800 [facility] Last Admin: 07/21/18 09:23 Dose: 1 tab Thiamine HCl (Vitamin B1 Tab) 100 mg PO DAILY [facility] Last Admin: 07/21/18 09:23 Dose: 100 mg Physical Exam - Constitutional Appears: Well, No Acute Distress - Head Exam Head Exam: ATRAUMATIC, NORMOCEPHALIC - Eye Exam Eye Exam: Normal appearance - Extremities Exam Additional comments: Right knee AROM/PROM WNL No pain with palpation Mild swelling appreciated Results - Vital Signs Recent Vital Signs: Last Vital Signs Temp 98.8 F 07/21/18 08:53 Pulse 79 07/21/18 08:53 Resp 20 07/21/18 08:53 BP 120/66 07/21/18 08:53 Pulse Ox 97 07/21/18 08:53 - Labs Result Diagrams: 07/21/18 06:30 07/21/18 06:30 Labs: Laboratory Results - last 24 hr 07/20/18 07/21/18 07/21/18 15:08 06:30 06:30 WBC 7.9 D RBC 3.30 L Hgb 10.8 L Hct 31.8 L MCV 96.4 MCH 32.7 MCHC 34.0 RDW 13.7 Plt Count 236 MPV 8.9 Neut % (Auto) 64.6 Lymph % (Auto) 13.9 L Dolores % (Auto) 21.2 H Eos % (Auto) 0.0 L Baso % (Auto) 0.3 Lymph # (Auto) 1.1 L Dolores # (Auto) 1.7 H Eos # (Auto) 0.0 Baso # (Auto) 0.02 Absolute Neuts (auto) 5.08 Neutrophils % (Manual) 68 Band Neutrophils % 2 Lymphocytes % (Manual) 21 L Monocytes % (Manual) 8 H Basophils % (Manual) 1 Platelet Evaluation Normal Sodium 131 L Potassium 3.7 Chloride 97 L Carbon Dioxide 21 Anion Gap 16 BUN 11 Creatinine 0.9 Est GFR ( Amer) > 60 Est GFR (Non-Af Amer) > 60 Random Glucose 97 Calcium 9.4 Total Bilirubin 1.2 AST 26 ALT 38 Alkaline Phosphatase 63 Total Protein 7.3 Albumin 4.2 Globulin 3.2 Albumin/Globulin Ratio 1.3 Urine Color Yellow Urine Appearance Sl cloudy Urine pH 6.0 Ur Specific [place] 1.015 Urine Protein Negative Urine Glucose (UA) Negative Urine Ketones Negative Urine Blood Trace-intact H Urine Nitrate Negative Urine Bilirubin Negative Urine Urobilinogen 0.2 Ur Leukocyte Esterase Small H Urine RBC 0 - 2 Urine WBC 5 - 10 H Assessment & Plan - Assessment and Plan (Free Text) Assessment: 52M patient with R knee pain likely secondary to gout Plan: Patient seen and examined Discussed patient in detail with Dr. Waite Afebjohnle, absent leukocytosis R knee x-ray reviewed; moderate joint effusion Educated on gout diet C/w Allopurinol and Indocin Pain control F/u as outpatient in office with Dr. Waite - Date & Time Date: 07/21/18 Time: 10:53
--- NOTE | 2018-07-21 15:15 | CP.PCM.DIS ---
<Raegan Gonzalez - Last Filed: 07/21/18 15:39> Provider - Provider Date of Admission: 07/15/18 14:32 Attending physician: Maggie Oliveros MD Primary care physician: Michael Hyman MD Consults: 07/15/18 14:56 Consult [Physician Consult] Stat Comment: Consulting Provider: Casa Rees Consulting Physician: Casa Rees Reason for Consult: unable to place sanchez catheter 07/15/18 18:22 Nursing Referral for Wound Care Routine Comment: Physician Instructions: Reason For Exam: heel integrity 07/15/18 21:56 Social Work Referral Routine Comment: d/c plan Physician Instructions: Reason For Exam: assess 07/16/18 08:24 Psychiatry Consult Routine Comment: Consulting Provider: Louie Navas Consulting Physician: Louie Navas Reason for Consult: Patient has psych hx (Bipolar) 07/20/18 14:11 Orthopedic Consult Routine Comment: Consulting Provider: Gee Waite Consulting Physician: Gee Waite Reason for Consult: right knee effusion fluid aspiration Time Spent in preparation of Discharge (in minutes): 60 Hospital Course - Lab Results Lab Results: Micro Results 07/20/18 12:30 Blood Blood Culture - Preliminary NO GROWTH AFTER 24 HOURS 07/20/18 12:10 Blood Blood Culture - Preliminary NO GROWTH AFTER 24 HOURS 07/15/18 14:15 Blood Blood Culture - Final NO GROWTH AFTER 5 DAYS 07/15/18 14:15 Blood Gram Stain - Final TEST NOT PERFORMED 07/15/18 14:00 Blood Blood Culture - Final NO GROWTH AFTER 5 DAYS 07/15/18 14:00 Blood Gram Stain - Final TEST NOT PERFORMED 07/15/18 20:01 Naris MRSA Culture (Admit) - Final MRSA NOT DETECTED Most Recent Lab Values WBC 7.9 10^3/uL (4.5-11.0) D 07/21/18 06:30 RBC 3.30 10^6/uL (3.5-6.1) L 07/21/18 06:30 Hgb 10.8 g/dL (14.0-18.0) L 07/21/18 06:30 Hct 31.8 % (42.0-52.0) L 07/21/18 06:30 MCV 96.4 fl (80.0-105.0) 07/21/18 06:30 MCH 32.7 pg (25.0-35.0) 07/21/18 06:30 MCHC 34.0 g/dl (31.0-37.0) 07/21/18 06:30 RDW 13.7 % (11.5-14.5) 07/21/18 06:30 Plt Count 236 10^3/uL (120.0-450.0) 07/21/18 06:30 MPV 8.9 fl (7.0-11.0) 07/21/18 06:30 Neut % (Auto) 64.6 % (50.0-68.0) 07/21/18 06:30 Lymph % (Auto) 13.9 % (22.0-35.0) L 07/21/18 06:30 [place] % (Auto) 21.2 % (1.0-6.0) H 07/21/18 06:30 Eos % (Auto) 0.0 % (1.5-5.0) L 07/21/18 06:30 Baso % (Auto) 0.3 % (0.0-3.0) 07/21/18 06:30 Lymph # (Auto) 1.1 (1.2-3.4) L 07/21/18 06:30 [place] # (Auto) 1.7 (0.1-0.6) H 07/21/18 06:30 Eos # (Auto) 0.0 (0.0-0.7) 07/21/18 06:30 Baso # (Auto) 0.02 K/mm3 (0.0-2.0) 07/21/18 06:30 Absolute Neuts (auto) 5.08 (1.4-6.5) 07/21/18 06:30 Neutrophils % (Manual) 68 % (50.0-70.0) 07/21/18 06:30 Band Neutrophils % 2 % (0-2) 07/21/18 06:30 Lymphocytes % (Manual) 21 % (22.0-35.0) L 07/21/18 06:30 Monocytes % (Manual) 8 % (1.0-6.0) H 07/21/18 06:30 Basophils % (Manual) 1 % (0.0-1.0) 07/21/18 06:30 Platelet Evaluation Normal (NORMAL) 07/21/18 06:30 pO2 193 mm/Hg (30-55) H 07/15/18 19:58 VBG pH 7.45 (7.32-7.43) H 07/15/18 19:58 VBG pCO2 28.0 (40-60) L 07/15/18 19:58 VBG HCO3 19.5 mmol/l (21-28) L 07/15/18 19:58 VBG Total CO2 20.4 mmol.L (22-28) L 07/15/18 19:58 VBG O2 Sat (Calc) 99.3 % (40-65) H 07/15/18 19:58 VBG Base Excess -3.2 mmol/L (0.0-2.0) L 07/15/18 19:58 VBG Potassium 3.5 mmol/L (3.6-5.2) L 07/15/18 19:58 Sodium 144.0 mmol/L (132-148) 07/15/18 19:58 Chloride 116.0 mmol/L (98-107) H 07/15/18 19:58 Glucose 116 mg/dl (75-110) H 07/15/18 19:58 Lactate 1.9 mmol/L (0.7-2.1) 07/15/18 19:58 FiO2 21.0 % 07/15/18 19:58 Crit Value Called To Brenda salinas 07/15/18 19:58 Crit Value Called By Dariel 07/15/18 19:58 Blood Gas Notified Time 202507/15/18 19:58 Sodium 131 mmol/L (132-148) L 07/21/18 06:30 Potassium 3.7 mmol/L (3.6-5.0) 07/21/18 06:30 Chloride 97 mmol/L (98-107) L 07/21/18 06:30 Carbon Dioxide 21 mmol/L (21-33) 07/21/18 06:30 Anion Gap 16 (10-20) 07/21/18 06:30 BUN 11 mg/dL (7-21) 07/21/18 06:30 Creatinine 0.9 mg/dl (0.8-1.5) 07/21/18 06:30 Est GFR ( Amer) > 60 07/21/18 06:30 Est GFR (Non-Af Amer) > 60 07/21/18 06:30 POC Glucose (mg/dL) 115 mg/dL (65-110) H 07/19/18 21:25 Random Glucose 97 mg/dL (70-110) 07/21/18 06:30 Serum Osmolality 313 mosm/kg (272-300) H 07/15/18 12:00 Calcium 9.4 mg/dL (8.4-10.5) 07/21/18 06:30 Phosphorus 4.3 mg/dL (2.5-4.5) 07/16/18 05:00 Magnesium 2.3 mg/dL (1.7-2.2) H 07/16/18 05:00 Total Bilirubin 1.2 mg/dL (0.2-1.3) 07/21/18 06:30 AST 26 U/L (17-59) 07/21/18 06:30 ALT 38 U/L (7-56) 07/21/18 06:30 Alkaline Phosphatase 63 U/L (38-126) 07/21/18 06:30 Total Protein 7.3 g/dL (5.8-8.3) 07/21/18 06:30 Albumin 4.2 g/dL (3.0-4.8) 07/21/18 06:30 Globulin 3.2 gm/dL 07/21/18 06:30 Albumin/Globulin Ratio 1.3 (1.1-1.8) 07/21/18 06:30 Vitamin B12 415 pg/mL (239-931) 07/17/18 13:20 Folate 11.4 ng/mL 07/17/18 13:20 Procalcitonin < 0.05 NG/ML (0.19-0.49) L 07/15/18 12:00 Venous Blood Potassium 3.5 mmol/L (3.6-5.2) L 07/15/18 19:58 Urine Color Yellow (YELLOW) 07/20/18 15:08 Urine Appearance Sl cloudy (CLEAR) 07/20/18 15:08 Urine pH 6.0 (4.7-8.0) 07/20/18 15:08 Ur Specific [place] 1.015 (1.005-1.035) 07/20/18 15:08 Urine Protein Negative mg/dL (<30 mg/dL) 07/20/18 15:08 Urine Glucose (UA) Negative mg/dL (NEGATIVE) 07/20/18 15:08 Urine Ketones Negative mg/dL (NEGATIVE) 07/20/18 15:08 Urine Blood Trace-intact (NEGATIVE) H 07/20/18 15:08 Urine Nitrate Negative (NEGATIVE) 07/20/18 15:08 Urine Bilirubin Negative (NEGATIVE) 07/20/18 15:08 Urine Urobilinogen 0.2 E.U./dL (<1 E.U./dL) 07/20/18 15:08 Ur Leukocyte Esterase [place]/uL (NEGATIVE) H 07/20/18 15:08 Urine RBC 0 - 2 /hpf (0-2) 07/20/18 15:08 Urine WBC 5 - 10 /hpf (0-6) H 07/20/18 15:08 Salicylates < 1 mg/dL (2.0-20.0) L 07/15/18 10:54 Urine Opiates Screen Negative (NEGATIVE) 07/16/18 08:40 Urine Methadone Screen Negative (NEGATIVE) 07/16/18 08:40 Acetaminophen < 10.0 ug/ml (10.0-20.0) L 07/15/18 10:54 Ur Barbiturates Screen Negative (NEGATIVE) 07/16/18 08:40 Ur Phencyclidine Scrn Negative (NEGATIVE) 07/16/18 08:40 Ur Amphetamines Screen Negative (NEGATIVE) 07/16/18 08:40 U Benzodiazepines Scrn Positive (NEGATIVE) H 07/16/18 08:40 U Oth Cocaine Metabols Negative (NEGATIVE) 07/16/18 08:40 U Cannabinoids Screen Negative (NEGATIVE) 07/16/18 08:40 Alcohol, Quantitative 60 mg/dL (0-10) H 07/15/18 10:54 - Hospital Course Hospital Course: Raegan Gonzalez, PGY-1, Internal Medicine Discharge Summary for Dr. Oliveros 52 year old male with past medical history of bipolar disorder, gout, history of alcohol abuse presented after overdosing on Klonipin 0.5 mg x2 and seroquel 140 mg x2 as well as drinking excessive alcohol. Patient was agitated on admission, suffering from delirium tremens and was agitated and uncooperative despite multiple doses of ativan. CIWA was initially 20s-40s. As a result, precedex was started on admission. UDS on admission was positive for benzodiazepines and alc ohol level was 60. Patient additionally had high anion gap metabolic acidosis on admission likely 2/2 to alcohol use and lactic acidosis. Procalcitonin was less than 0.05. Patient had elevated ALT on admission, which trended down throughout this admission. In ICU, precedex was tapered. Precedex was unable to be tapered off initially due to severe agitation and was emotional. On 07/17, patient was t apered off precedex successfully. Since 07/17, patient's mental status significantly improved and has been AAOx3. His CIWA has been less than 2 since off of precedex. Transaminases improved. HAGMA resolved. Patient was started on librium at the time and librium was tapered down throughout the admission. He is currently on librium 5 mg Q12. Patient was on multivitamin, thiamine, and folic acid for nutrient supplementation. Patient had temperature of 100.1 on 07/19. Patient reported that he was starting to have right knee pain, erythema, swelling, and warmth possibly secondary to early gout flare and was started on tylenol initially. Knee X ray showed moderate joint effusion. The next day, patient was febrile at 101 with mild leukocytosis. Chest X ray, UA, BCx showed no suspicion for infection. As a result, patient was started on indomethacin with improvement in pain, erthyema, swelling, and warmth. Today, patient was afebrile with leukocytosis resolved and was found to be stable and ready for discharge. Patient was stable and ready for discharge. Patient was told to follow up with PCP within 3-5 days. Patient was told to take all home medications as prescribed. After discussions with psychiatry regarding home psych medications, patient signed disclaimer form regarding not hurting himself and he reported that he did not have any suicidal ideations at this time. In addition, psychi atry reported that he can resume his home psych medication regimen. For gout, patient was told to follow up with Dr. Waite outpatient. In addition, he was told to continue indomethacin for 5 days and continue home allopurinol once flair resolved. Patient was told to complete rehabilitation program for benzodiazepine and alcohol. Patient was told to return to the emergency department if he had any new or concerning symptoms. This is a brief summary of the events that occurred during this hospital visit. For more information, please refer to hospital documentation. Discharge diagnoses Alcohol withdrawal Benzodiazepine abuse Gout flare - Date & Time of H&P Date of H&P: 07/15/18 Time of H&P: 14:51 Discharge Exam - Head Exam Head Exam: ATRAUMATIC, NORMOCEPHALIC - Eye Exam Eye Exam: EOMI, PERRL - ENT Exam ENT Exam: Mucous Membranes Moist - Respiratory Exam Respiratory Exam: Clear to PA & Lateral, NORMAL BREATHING PATTERN. absent: Rales, Rhonchi, Wheezes - Cardiovascular Exam Cardiovascular Exam: REGULAR RHYTHM, RRR, +S1, +S2. absent: Clicks, Gallop, Rubs - GI/Abdominal Exam GI & Abdominal Exam: Normal Bowel Sounds, Soft. absent: Distended, Firm, Guarding, Tenderness - Extremities Exam Extremities exam: full ROM, normal capillary refill, normal inspection Additional comments: right knee swollen, erythema, warmth improved - Neurological Exam Neurological exam: Alert, CN II-XII Intact, Normal Gait, Oriented x3 - Psychiatric Exam Psychiatric exam: Normal Affect, Normal Mood - Skin Skin Exam: Dry, Intact, Normal Color Discharge Plan - Discharge Medications Prescriptions: Allopurinol [Zyloprim] 300 mg PO DAILY 30 Days #30 tab Folic Acid 1 mg PO DAILY 30 Days #30 tab Indomethacin [Indocin] 25 mg PO TID 5 Days #15 cap Multivitamin Therapeutic Tab [Thera Tab] 1 tab PO 0800 30 Days #30 tab Thiamine [Vitamin B1 Tab] 100 mg PO DAILY 30 Days #30 tab - Follow Up Plan Condition: CRITICAL Disposition: REHAB FACILITY/REHAB UNIT Instructions: Altered Mental Status (DC), Alcohol Abuse and Alcoholism (DC) Additional Instructions: Please follow up with your primary care doctor within 3-5 days. Please complete rehabilitation in [place] for detoxification. Please follow up with Dr. Waite, Orthopedic Surgery, outpatient for further management. Please take all medications as prescribed. Please abstain from alcohol use and benzodiazepine use. Please return to the emergency department if you have any new or concerning symptoms. Referrals: Gee Waite MD [Staff Provider] - Michael Hyman MD [Primary Care Provider] - <Maggie Oliveros - Last Filed: 07/21/18 17:15> Provider - Provider Date of Admission: 07/15/18 14:32 Attending physician: Maggie Oliveros MD Primary care physician: Michael Hyman MD Consults: 07/15/18 14:56 Consult [Physician Consult] Stat Comment: Consulting Provider: Casa Rees Consulting Physician: Casa Rees Reason for Consult: unable to place sanchez catheter 07/15/18 18:22 Nursing Referral for Wound Care Routine Comment: Physician Instructions: Reason For Exam: heel integrity 07/15/18 21:56 Social Work Referral Routine Comment: d/c plan Physician Instructions: Reason For Exam: assess 07/16/18 08:24 Psychiatry Consult Routine Comment: Consulting Provider: Louie Navas Consulting Physician: Louie Navas Reason for Consult: Patient has psych hx (Bipolar) 07/20/18 14:11 Orthopedic Consult Routine Comment: Consulting Provider: Gee Waite Consulting Physician: Gee Waite Reason for Consult: right knee effusion fluid aspiration Hospital Course - Lab Results Lab Results: Micro Results 07/20/18 12:30 Blood Blood Culture - Preliminary NO GROWTH AFTER 24 HOURS 07/20/18 12:10 Blood Blood Culture - Preliminary NO GROWTH AFTER 24 HOURS 07/15/18 14:15 Blood Blood Culture - Final NO GROWTH AFTER 5 DAYS 07/15/18 14:15 Blood Gram Stain - Final TEST NOT PERFORMED 07/15/18 14:00 Blood Blood Culture - Final NO GROWTH AFTER 5 DAYS 07/15/18 14:00 Blood Gram Stain - Final TEST NOT PERFORMED 07/15/18 20:01 Naris MRSA Culture (Admit) - Final MRSA NOT DETECTED Most Recent Lab Values WBC 7.9 10^3/uL (4.5-11.0) D 07/21/18 06:30 RBC 3.30 10^6/uL (3.5-6.1) L 07/21/18 06:30 Hgb 10.8 g/dL (14.0-18.0) L 07/21/18 06:30 Hct 31.8 % (42.0-52.0) L 07/21/18 06:30 MCV 96.4 fl (80.0-105.0) 07/21/18 06:30 MCH 32.7 pg (25.0-35.0) 07/21/18 06:30 MCHC 34.0 g/dl (31.0-37.0) 07/21/18 06:30 RDW 13.7 % (11.5-14.5) 07/21/18 06:30 Plt Count 236 10^3/uL (120.0-450.0) 07/21/18 06:30 MPV 8.9 fl (7.0-11.0) 07/21/18 06:30 Neut % (Auto) 64.6 % (50.0-68.0) 07/21/18 06:30 Lymph % (Auto) 13.9 % (22.0-35.0) L 07/21/18 06:30 [place] % (Auto) 21.2 % (1.0-6.0) H 07/21/18 06:30 Eos % (Auto) 0.0 % (1.5-5.0) L 07/21/18 06:30 Baso % (Auto) 0.3 % (0.0-3.0) 07/21/18 06:30 Lymph # (Auto) 1.1 (1.2-3.4) L 07/21/18 06:30 [place] # (Auto) 1.7 (0.1-0.6) H 07/21/18 06:30 Eos # (Auto) 0.0 (0.0-0.7) 07/21/18 06:30 Baso # (Auto) 0.02 K/mm3 (0.0-2.0) 07/21/18 06:30 Absolute Neuts (auto) 5.08 (1.4-6.5) 07/21/18 06:30 Neutrophils % (Manual) 68 % (50.0-70.0) 07/21/18 06:30 Band Neutrophils % 2 % (0-2) 07/21/18 06:30 Lymphocytes % (Manual) 21 % (22.0-35.0) L 07/21/18 06:30 Monocytes % (Manual) 8 % (1.0-6.0) H 07/21/18 06:30 Basophils % (Manual) 1 % (0.0-1.0) 07/21/18 06:30 Platelet Evaluation Normal (NORMAL) 07/21/18 06:30 pO2 193 mm/Hg (30-55) H 07/15/18 19:58 VBG pH 7.45 (7.32-7.43) H 07/15/18 19:58 VBG pCO2 28.0 (40-60) L 07/15/18 19:58 VBG HCO3 19.5 mmol/l (21-28) L 07/15/18 19:58 VBG Total CO2 20.4 mmol.L (22-28) L 07/15/18 19:58 VBG O2 Sat (Calc) 99.3 % (40-65) H 07/15/18 19:58 VBG Base Excess -3.2 mmol/L (0.0-2.0) L 07/15/18 19:58 VBG Potassium 3.5 mmol/L (3.6-5.2) L 07/15/18 19:58 Sodium 144.0 mmol/L (132-148) 07/15/18 19:58 Chloride 116.0 mmol/L (98-107) H 07/15/18 19:58 Glucose 116 mg/dl (75-110) H 07/15/18 19:58 Lactate 1.9 mmol/L (0.7-2.1) 07/15/18 19:58 FiO2 21.0 % 07/15/18 19:58 Crit Value Called To Brenda salinas 07/15/18 19:58 Crit Value Called By Dariel 07/15/18 19:58 Blood Gas Notified Time 202507/15/18 19:58 Sodium 131 mmol/L (132-148) L 07/21/18 06:30 Potassium 3.7 mmol/L (3.6-5.0) 07/21/18 06:30 Chloride 97 mmol/L (98-107) L 07/21/18 06:30 Carbon Dioxide 21 mmol/L (21-33) 07/21/18 06:30 Anion Gap 16 (10-20) 07/21/18 06:30 BUN 11 mg/dL (7-21) 07/21/18 06:30 Creatinine 0.9 mg/dl (0.8-1.5) 07/21/18 06:30 Est GFR ( Amer) > 60 07/21/18 06:30 Est GFR (Non-Af Amer) > 60 07/21/18 06:30 POC Glucose (mg/dL) 115 mg/dL (65-110) H 07/19/18 21:25 Random Glucose 97 mg/dL (70-110) 07/21/18 06:30 Serum Osmolality 313 mosm/kg (272-300) H 07/15/18 12:00 Calcium 9.4 mg/dL (8.4-10.5) 07/21/18 06:30 Phosphorus 4.3 mg/dL (2.5-4.5) 07/16/18 05:00 Magnesium 2.3 mg/dL (1.7-2.2) H 07/16/18 05:00 Total Bilirubin 1.2 mg/dL (0.2-1.3) 07/21/18 06:30 AST 26 U/L (17-59) 07/21/18 06:30 ALT 38 U/L (7-56) 07/21/18 06:30 Alkaline Phosphatase 63 U/L (38-126) 07/21/18 06:30 Total Protein 7.3 g/dL (5.8-8.3) 07/21/18 06:30 Albumin 4.2 g/dL (3.0-4.8) 07/21/18 06:30 Globulin 3.2 gm/dL 07/21/18 06:30 Albumin/Globulin Ratio 1.3 (1.1-1.8) 07/21/18 06:30 Vitamin B12 415 pg/mL (239-931) 07/17/18 13:20 Folate 11.4 ng/mL 07/17/18 13:20 Procalcitonin < 0.05 NG/ML (0.19-0.49) L 07/15/18 12:00 Venous Blood Potassium 3.5 mmol/L (3.6-5.2) L 07/15/18 19:58 Urine Color Yellow (YELLOW) 07/20/18 15:08 Urine Appearance Sl cloudy (CLEAR) 07/20/18 15:08 Urine pH 6.0 (4.7-8.0) 07/20/18 15:08 Ur Specific [place] 1.015 (1.005-1.035) 07/20/18 15:08 Urine Protein Negative mg/dL (<30 mg/dL) 07/20/18 15:08 Urine Glucose (UA) Negative mg/dL (NEGATIVE) 07/20/18 15:08 Urine Ketones Negative mg/dL (NEGATIVE) 07/20/18 15:08 Urine Blood Trace-intact (NEGATIVE) H 07/20/18 15:08 Urine Nitrate Negative (NEGATIVE) 07/20/18 15:08 Urine Bilirubin Negative (NEGATIVE) 07/20/18 15:08 Urine Urobilinogen 0.2 E.U./dL (<1 E.U./dL) 07/20/18 15:08 Ur Leukocyte Esterase Small [place]/uL (NEGATIVE) H 07/20/18 15:08 Urine RBC 0 - 2 /hpf (0-2) 07/20/18 15:08 Urine WBC 5 - 10 /hpf (0-6) H 07/20/18 15:08 Salicylates < 1 mg/dL (2.0-20.0) L 07/15/18 10:54 Urine Opiates Screen Negative (NEGATIVE) 07/16/18 08:40 Urine Methadone Screen Negative (NEGATIVE) 07/16/18 08:40 Acetaminophen < 10.0 ug/ml (10.0-20.0) L 07/15/18 10:54 Ur Barbiturates Screen Negative (NEGATIVE) 07/16/18 08:40 Ur Phencyclidine Scrn Negative (NEGATIVE) 07/16/18 08:40 Ur Amphetamines Screen Negative (NEGATIVE) 07/16/18 08:40 U Benzodiazepines Scrn Positive (NEGATIVE) H 07/16/18 08:40 U Oth Cocaine Metabols Negative (NEGATIVE) 07/16/18 08:40 U Cannabinoids Screen Negative (NEGATIVE) 07/16/18 08:40 Alcohol, Quantitative 60 mg/dL (0-10) H 07/15/18 10:54 Attending/Attestation - Attestation I have personally seen and examined this patient.: Yes I have fully participated in the care of the patient.: Yes I have reviewed all pertinent clinical information, including history, physical exam and plan: Yes Notes (Text): 07/21/18 17:13 52 year old male with past medical history of alcohol abuse and bipolar disorder who presented after overdosing on klonopin and seroquel while drinking alcohol. Patient stated overdose was not intentional and he had trouble sleeping for past few days. In ER he was agitated and started on precedex for several alcohol/BZ withdrawal. He was tapered off precedex and started started on librium which was also tapered. He was seen by psychiatrist and cleared patient for discharge. Patient denies suicidal ideation or intent to harm himself. He was counselled on taking prescriptions only as prescribed by his pmd and psychiatrist and not mixing with alcohol. He was also found to have right knee swelling on xray likely secondary to gout flare up. He was started on indocin yesterday with improvement of symptoms. He was seen by ortho who recommended indocin and outpatient follow up. Patient is discharged to alcohol rehab. Counselled on alcohol cessation. Follow up with pmd and psychiatrist. Follow up with orthopedics. Maggie Oliveros MD Hospitalist.
== END 2018-07-21 16:02 | disposition home or self-care (01) | DRG 449 ==
LOC: ED 10:29 → ERH 14:32 → ICU 18:52 → 3RSO 07-18 09:10
PROVIDERS: ADMIT Internal Medicine; ATTEND Internal Medicine
DX: T42.4X1A Poisoning by benzodiazepines, accidental (unintentional), initial encounter (principal); F10.231 Alcohol dependence with withdrawal delirium; E86.0 Dehydration; E87.6 Hypokalemia; E87.4 Mixed disorder of acid-base balance; E87.8 Other disorders of electrolyte and fluid balance, not elsewhere classified; F13.239 Sedative, hypnotic or anxiolytic dependence with withdrawal, unspecified; T51.0X1A Toxic effect of ethanol, accidental (unintentional), initial encounter; Y90.3 Blood alcohol level of 60-79 mg/100 ml; M10.061 Idiopathic gout, right knee; M25.461 Effusion, right knee; F31.9 Bipolar disorder, unspecified; F41.1 Generalized anxiety disorder; F41.0 Panic disorder [episodic paroxysmal anxiety]; F43.21 Adjustment disorder with depressed mood; R33.9 Retention of urine, unspecified; Z78.1 Physical restraint status; Z87.891 Personal history of nicotine dependence